=== PATIENT | female | born 1935 | race Caucasian/White ===

== ENCOUNTER 2018-11-03 19:00 | Inpatient (IN) | payer MEDICARE ==
[2018-11-03] MEDS ORDERED: Insulin Regular, Human 100 Units/ML 3 ML Vial IV STA (19:50)
[2018-11-03] MEDS ORDERED: Lactated Ringers 1,000 ML IV ONE ×2 (19:53→21:51)
--- NOTE | 2018-11-03 20:33 | EDM.PDOC ---
ED HPI GENERAL MEDICAL PROBLEM - General Chief Complaint: Diabetic Complaint Stated Complaint: HIGH BLOOD SUGAR WEAK Time Seen by Provider: 11/03/18 19:36 Source of Information: Reports: Family (Daughter), RN Notes Reviewed History Limitations: Reports: No Limitations - History of Present Illness INITIAL COMMENTS - FREE TEXT/NARRATIVE: The patient is brought by EMS from [facility], a [facility], with a complaint of hyperglycemia. According to EMS, the patient's blood glucose was found to be >600 at [facility]. No paperwork accompanied the patient, however , the patient's daughter is here in the ED. According to the patient's daughter, the patient is a history of diabetes, on insulin. She believes that her mother's blood glucose is checked twice a day. She does not know what her mother's normal blood glucose range is, however, as far as the patient's daughter is aware, the patient's blood glucoses were within her normal range up until yesterday, but were elevated today. The daughter stated that the patient has not been eating today. She is not aware if [facility] gave additional insulin or not. The patient's daughter is not aware of any infectious symptoms in the patient, such as a cough, fever, or rash. Here in the ED, the patient's Accu-Chek is >400. She is tachycardic, but afebrile, saturating 95% on room air. She is confused, and unable to provide any meaningful history. The patient's PCP is Dr. Cota. - Related Data Allergies Allergy/AdvReac Type Severity Reaction Status Date / Time lisinopril [From Zestril] Allergy Cannot Verified 11/03/18 19:54 Remember Penicillins Allergy Cannot Verified 11/03/18 19:54 Remember simvastatin [From Zocor] Allergy Cannot Verified 11/03/18 19:54 Remember Home Meds: Home Meds Amlodipine. 7.5 mg PO DAILY 12/23/14 [History] Lialda. 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 ED EXAM GENERAL NO PERIP PULSE - Physical Exam Exam: See Below Exam Limited By: No Limitations General Appearance: No Apparent Distress, Thin Eye Exam: Bilateral Eye: EOMI, Normal Inspection Ears: Normal External Exam Nose: Normal Inspection Throat/Mouth: Normal Lips, No Airway Compromise, Other (Dry oral mucosa) Head: Atraumatic, Normocephalic Neck: Normal Inspection, Full Range of Motion Respiratory/Chest: No Respiratory Distress, Lungs Clear, Normal Breath Sounds, No Accessory Muscle Use, Other (The patient did not take deep breaths on command ) Cardiovascular: Normal Peripheral Pulses, No Edema, No Gallop, No JVD, No Murmur , No Rub, Tachycardia (regular) GI/Abdominal: Normal Bowel Sounds, Soft, Non-Tender, No Organomegaly, No Distention, No Abnormal Bruit, No Mass (Female) Exam: Deferred Rectal (Female) Exam: Deferred Extremities: Normal Inspection, Normal Range of Motion, No Pedal Edema, Normal Capillary Refill Neurological: Confused, Other (Moves all 4 extremities spontaneously) Psychiatric: Other (Unable to assess) Skin Exam: Warm, Dry, Intact, Normal Color, No Rash EKG INTERPRETATION EKG Date: 11/03/18 Time: 19:57 Rhythm: Other (Sinus tachycardia) Rate (Beats/Min): 109 [place]: Normal P-Wave: Enlarged (IRENE, +/- LAE) QRS: Normal ST-T: Normal QT: Normal Comparison: NA - No Prior EKG Course - Vital Signs Last Recorded V/S: Last Vital Signs Temp 36.7 C 11/03/18 19:27 Pulse 113 H 11/03/18 19:27 Resp 18 11/03/18 19: BP 143/89 H 11/03/18 19:27 Pulse Ox 95 11/03/18 19:27 - Orders/Labs/Meds Orders: Active Orders 24 hr Category Date Time Status EKG Documentation Completion [RC] STAT Care 11/03/18 19:48 Active POC Glucose [Blood Glucose Check, Bedside] [RC] ONETIME Care 11/03/18 21:14 Active Chest 1V Frontal [CR] Stat Exams 11/03/18 19:48 Taken CULTURE BLOOD [BC] Stat Lab 11/03/18 20:10 Received CULTURE BLOOD [BC] Stat Lab 11/03/18 20:20 Received Insulin Regular, Human [HumuLIN R] 100 unit Med 11/03/18 20:13 Active Sodium Chloride 0.9% [Normal Saline] 99 ml IV ONETIME Blood Culture x2 Reflex Set [OM.PC] Stat Oth 11/03/18 19:48 Ordered Medication Orders Insulin Human Regular 100 unit (/ Sodium Chloride) 100 mls @ 5.05 mls/hr IV ONETIME ONE; Protocol Stop: 11/04/18 16:01 Last Admin: 11/03/18 20:43 Dose: 0.1 units/kg/hr, 5.05 mls/hr Lactated Ringer's (Ringers, Lactated) 1,000 mls @ 999 mls/hr IV .BOLUS ONE Stop: 11/03/18 22:51 Last Admin: 11/03/18 21:58 Dose: 999 mls/hr Labs: Laboratory Tests 11/03/18 11/03/18 11/03/18 Range/Units 19:20 19:20 19:20 WBC 13.10 H (3.98-10.04) K/mm3 RBC 5.06 (3.98-5.22) M/mm3 Hgb 15.6 (11.2-15.7) gm/L Hct 48.8 H (34.1-44.9) % MCV 96.4 H (79.4-94.8) fl MCH 30.8 (25.6-32.2) pg MCHC 32.0 L (32.2-35.5) g/dl RDW Std Deviation 47.2 H (36.4-46.3) fL Plt Count 345 (182-369) K/mm3 MPV 11.3 (9.4-12.3) fl Neutrophils % (Manual) 80 H (40-60) % Band Neutrophils % 0 (0-10) % Lymphocytes % (Manual) 19 L (20-40) % Atypical Lymphs % 0 % Monocytes % (Manual) 1 L (2-10) % Eosinophils % (Manual) 0 L (0.7-5.8) % Basophils % (Manual) 0 L (0.1-1.2) Platelet Estimate Adequate Plt Morphology Comment Normal RBC Morph Comment Normal Puncture Site ABG pH (7.35-7.45) ABG pCO2 (35.0-45.0) mmHg ABG pO2 (80.0-100.0) mmHg ABG HCO3 (22.0-26.0) meq/L ABG O2 Saturation (96.0-97.0) % ABG Base Excess (-2-2.0) A-a Gradient mmHg O2 Delivery Device FiO2 (21.00-100.00) % Sodium 147 H (136-145) mEq/L Potassium 4.1 (3.5-5.1) mEq/L Chloride 109 H (98-107) mEq/L Carbon Dioxide 24 (21-32) mEq/L Anion Gap 18.1 H (5-15) BUN 47 H (7-18) mg/dL Creatinine 1.6 H (0.55-1.02) mg/dL Est Cr Clr Drug Dosing 21.81 mL/min Estimated GFR (MDRD) 31 (>60) mL/min BUN/Creatinine Ratio 29.4 H (14-18) Glucose 749 H* TNP (83-115) mg/dL Lactic Acid (0.4-2.0) mmol/L Calcium 10.4 H (8.5-10.1) mg/dL Magnesium 2.9 H (1.8-2.4) mg/dl Total Bilirubin 0.3 (0.2-1.0) mg/dL AST 140 H (15-37) U/L ALT 48 (14-59) U/L Alkaline Phosphatase 92 (46-116) U/L Troponin I 0.062 H* (0.00-0.056) ng/mL Total Protein 8.4 H (6.4-8.2) g/dl Albumin 3.7 (3.4-5.0) g/dl Globulin 4.7 gm/dL Albumin/Globulin Ratio 0.8 L (1-2) Urine Color (Yellow) Urine Appearance (Clear) Urine pH (5.0-8.0) Ur Specific [place] (1.005-1.030) Urine Protein (Negative) Urine Glucose (UA) (Negative) Urine Ketones (Negative) Urine Occult Blood (Negative) Urine Nitrite (Negative) Urine Bilirubin (Negative) Urine Urobilinogen (0.2-1.0) Ur Leukocyte Esterase (Negative) Urine RBC (0-5) /hpf Urine WBC (0-5) /hpf Ur Epithelial Cells (0-5) /hpf Urine Bacteria (FEW) /hpf Urine Mucus (FEW) /hpf Ketones (0.0-0.3) mM 11/03/18 11/03/18 11/03/18 Range/Units 19:20 20:03 20:20 WBC (3.98-10.04) K/mm3 RBC (3.98-5.22) M/mm3 Hgb (11.2-15.7) gm/L Hct (34.1-44.9) % MCV (79.4-94.8) fl MCH (25.6-32.2) pg MCHC (32.2-35.5) g/dl RDW Std Deviation (36.4-46.3) fL Plt Count (182-369) K/mm3 MPV (9.4-12.3) fl Neutrophils % (Manual) (40-60) % Band Neutrophils % (0-10) % Lymphocytes % (Manual) (20-40) % Atypical Lymphs % % Monocytes % (Manual) (2-10) % Eosinophils % (Manual) (0.7-5.8) % Basophils % (Manual) (0.1-1.2) Platelet Estimate Plt Morphology Comment RBC Morph Comment Puncture Site Lt radial ABG pH 7.34 L (7.35-7.45) ABG pCO2 39.9 (35.0-45.0) mmHg ABG pO2 66.0 L (80.0-100.0) mmHg ABG HCO3 20.9 L (22.0-26.0) meq/L ABG O2 Saturation 90.5 L (96.0-97.0) % ABG Base Excess -4.1 L (-2-2.0) A-a Gradient 18 mmHg O2 Delivery Device Room air FiO2 21.00 (21.00-100.00) % Sodium (136-145) mEq/L Potassium (3.5-5.1) mEq/L Chloride (98-107) mEq/L Carbon Dioxide (21-32) mEq/L Anion Gap (5-15) BUN (7-18) mg/dL Creatinine (0.55-1.02) mg/dL Est Cr Clr Drug Dosing mL/min Estimated GFR (MDRD) (>60) mL/min BUN/Creatinine Ratio (14-18) Glucose (83-115) mg/dL Lactic Acid 4.8 H (0.4-2.0) mmol/L Calcium (8.5-10.1) mg/dL Magnesium (1.8-2.4) mg/dl Total Bilirubin (0.2-1.0) mg/dL AST (15-37) U/L ALT (14-59) U/L Alkaline Phosphatase (46-116) U/L Troponin I (0.00-0.056) ng/mL Total Protein (6.4-8.2) g/dl Albumin (3.4-5.0) g/dl Globulin gm/dL Albumin/Globulin Ratio (1-2) Urine Color (Yellow) Urine Appearance (Clear) Urine pH (5.0-8.0) Ur Specific [place] (1.005-1.030) Urine Protein (Negative) Urine Glucose (UA) (Negative) Urine Ketones (Negative) Urine Occult Blood (Negative) Urine Nitrite (Negative) Urine Bilirubin (Negative) Urine Urobilinogen (0.2-1.0) Ur Leukocyte Esterase (Negative) Urine RBC (0-5) /hpf Urine WBC (0-5) /hpf Ur Epithelial Cells (0-5) /hpf Urine Bacteria (FEW) /hpf Urine Mucus (FEW) /hpf Ketones 0.35 (0.0-0.3) mM 11/03/18 11/03/18 Range/Units 20:30 21:21 WBC (3.98-10.04) K/mm3 RBC (3.98-5.22) M/mm3 Hgb (11.2-15.7) gm/L Hct (34.1-44.9) % MCV (79.4-94.8) fl MCH (25.6-32.2) pg MCHC (32.2-35.5) g/dl RDW Std Deviation (36.4-46.3) fL Plt Count (182-369) K/mm3 MPV (9.4-12.3) fl Neutrophils % (Manual) (40-60) % Band Neutrophils % (0-10) % Lymphocytes % (Manual) (20-40) % Atypical Lymphs % % Monocytes % (Manual) (2-10) % Eosinophils % (Manual) (0.7-5.8) % Basophils % (Manual) (0.1-1.2) Platelet Estimate Plt Morphology Comment RBC Morph Comment Puncture Site ABG pH (7.35-7.45) ABG pCO2 (35.0-45.0) mmHg ABG pO2 (80.0-100.0) mmHg ABG HCO3 (22.0-26.0) meq/L ABG O2 Saturation (96.0-97.0) % ABG Base Excess (-2-2.0) A-a Gradient mmHg O2 Delivery Device FiO2 (21.00-100.00) % Sodium (136-145) mEq/L Potassium (3.5-5.1) mEq/L Chloride (98-107) mEq/L Carbon Dioxide (21-32) mEq/L Anion Gap (5-15) BUN (7-18) mg/dL Creatinine (0.55-1.02) mg/dL Est Cr Clr Drug Dosing mL/min Estimated GFR (MDRD) (>60) mL/min BUN/Creatinine Ratio (14-18) Glucose 467 H (83-115) mg/dL Lactic Acid (0.4-2.0) mmol/L Calcium (8.5-10.1) mg/dL Magnesium (1.8-2.4) mg/dl Total Bilirubin (0.2-1.0) mg/dL AST (15-37) U/L ALT (14-59) U/L Alkaline Phosphatase (46-116) U/L Troponin I (0.00-0.056) ng/mL Total Protein (6.4-8.2) g/dl Albumin (3.4-5.0) g/dl Globulin gm/dL Albumin/Globulin Ratio (1-2) Urine Color Light yellow (Yellow) Urine Appearance Clear (Clear) Urine pH 6.0 (5.0-8.0) Ur Specific [place] 1.015 (1.005-1.030) Urine Protein 1+ H (Negative) Urine Glucose (UA) 2+ H (Negative) Urine Ketones Negative (Negative) Urine Occult Blood 3+ H (Negative) Urine Nitrite Negative (Negative) Urine Bilirubin Negative (Negative) Urine Urobilinogen 0.2 (0.2-1.0) Ur Leukocyte Esterase Negative (Negative) Urine RBC 0-5 (0-5) /hpf Urine WBC 0-5 (0-5) /hpf Ur Epithelial Cells 0-5 (0-5) /hpf Urine Bacteria Not seen (FEW) /hpf Urine Mucus Not seen (FEW) /hpf Ketones (0.0-0.3) mM Meds: Medications Generic Name Dose Route Start Last Admin Trade Name Freq PRN Reason Stop Dose Admin Insulin Human Regular 100 unit 100 mls @ 5.05 mls/hr 11/03/18 20:13 11/03/18 20:43 / Sodium Chloride IV 11/04/18 16:01 0.1 units/kg/hr ONETIME ONE 5.05 mls/hr Administration Protocol 0.1 UNITS/KG/HR Lactated Ringer's 1,000 mls @ 999 mls/hr 11/03/18 21:51 11/03/18 21:58 Ringers, Lactated IV 11/03/18 22:51 999 mls/hr .BOLUS ONE Administration Discontinued Medications Generic Name Dose Route Start Last Admin Trade Name Freedie PRN Reason Stop Dose Admin Insulin Human Regular 100 unit 100 mls @ 0.5 mls/hr 11/03/18 20:00 / Sodium Chloride IV TITRATE SIVA Protocol 0.1 UNITS/KG/HR Lactated Ringer's 1,000 mls @ 999 mls/hr 11/03/18 19:53 11/03/18 20:20 Ringers, Lactated IV 11/03/18 20:53 999 mls/hr .BOLUS ONE Administration Insulin Human Regular 5 unit 11/03/18 19:50 11/03/18 20:19 Humulin R IV 11/03/18 19:51 5 units ONETIME STA Administration - Re-Assessments/Exams Free Text/Narrative Re-Assessment/Exam: 11/03/18 20:28 The patient's ABG demonstrates a relatively mild, but acute metabolic acidosis. 11/03/18 20:33 The patient's sodium has returned modestly elevated at 147, however, her blood glucose has returned substantially elevated at 749. The patient's sodium corrects to 155. Her BUN/Cr is elevated at 47/1.6; we do not have prior labs for comparison. Her magnesium level is elevated at 2.9. The patient's troponin has returned slightly elevated at 0.062, however, the purpose of checking the troponin was only to see if a recent CA was the trigger for her hyperglycemia, not for the intention of treating coronary disease, given the patient's underlying dementia. This slight elevation of troponin is most likely due to her renal dysfunction, not a recent myocardial injury. 11/03/18 20:39 The patient's WBC count has returned mildly elevated at 13.10, but with 0% bandemia. The patient's ketones have returned slightly elevated at 0.35, indicating ketosis. 11/03/18 21:16 The patient's lactic acid level has returned modestly elevated at 4.8. Her influenza swab returned negative. Portable chest radiograph reviewed. The cardiac silhouette is within normal limits. No pulmonary vascular congestion. No pleural effusions seen on this AP view. There may be an infiltrate versus atelectasis at the left base. No pneumothorax. Formal read per the Radiologist pending. 11/03/18 21:[address] Lew at 21:23. He accepted the patient for admission to the ICU. Departure - Departure Time of Disposition: 21:26 Disposition: Admitted As Inpatient 68 Condition: Fair Clinical Impression: Hyperglycemia due to type 2 diabetes mellitus, Hyperglycemic hyperosmolar nonketotic coma, Severe dehydration, Renal insufficiency - Discharge Information *PRESCRIPTION DRUG MONITORING PROGRAM REVIEWED*: Not Applicable *COPY OF PRESCRIPTION DRUG MONITORING REPORT IN PATIENT SOHAM: Not Applicable - My Orders Last 24 Hours: My Active Orders 11/03/18 19:48 EKG Documentation Completion [RC] STAT Chest 1V Frontal [CR] Stat Blood Culture x2 Reflex Set [OM.PC] Stat 11/03/18 20:10 CULTURE BLOOD [BC] Stat 11/03/18 20:13 Insulin Regular, Human [HumuLIN R] 100 unit Sodium Chloride 0.9% [Normal Saline] 99 ml IV ONETIME 11/03/18 20:20 CULTURE BLOOD [BC] Stat 11/03/18 21:14 POC Glucose [Blood Glucose Check, Bedside] [RC] ONETIME - Assessment/Plan Last 24 Hours: My Active Orders 11/03/18 19:48 EKG Documentation Completion [RC] STAT Chest 1V Frontal [CR] Stat Blood Culture x2 Reflex Set [OM.PC] Stat 11/03/18 20:10 CULTURE BLOOD [BC] Stat 11/03/18 20:13 Insulin Regular, Human [HumuLIN R] 100 unit Sodium Chloride 0.9% [Normal Saline] 99 ml IV ONETIME 11/03/18 20:20 CULTURE BLOOD [BC] Stat 11/03/18 21:14 POC Glucose [Blood Glucose Check, Bedside] [RC] ONETIME
[2018-11-03] MEDS ORDERED: hydrALAZINE 20 MG/ML SDV IVPUSH PRN (22:08)
[2018-11-03] MEDS ORDERED: Metoprolol Tartrate 5 MG/5 ML SDV IVPUSH PRN (22:08)
[2018-11-03] MEDS ORDERED: HYDROmorphone 1 MG/ML Syringe IVPUSH PRN (22:10)
[2018-11-03] MEDS ORDERED: Bisacodyl 5 MG Tab PO PRN (22:10)
[2018-11-03] MEDS ORDERED: Acetaminophen 325 MG Tab PO PRN (22:10)
[2018-11-03] MEDS ORDERED: LORazepam 2 MG/ML SDV IV PRN (22:10)
[2018-11-03] MEDS ORDERED: Albuterol/Ipratropium 3.0-0.5 MG/3 ML Neb Soln NEB PRN (22:10)
[2018-11-03] MEDS ORDERED: Polyethylene Glycol 3350 Powder 17 GM Packet PO PRN (22:10)
[2018-11-03] MEDS ORDERED: Ondansetron 4 MG/2 ML SDV IV PRN (22:10)
[2018-11-03] MEDS ORDERED: Promethazine 6.25 MG in Sodium Chloride 0.9% 50 ML IV PRN (22:10)
[2018-11-03] MEDS ORDERED: Acetaminophen/HYDROcodone 325-5 MG Tab PO PRN (22:10)
[2018-11-03] MEDS ORDERED: Docusate Sodium 100 MG Cap PO PRN (22:10)
[2018-11-03] MEDS ORDERED: Haloperidol Lactate 5 MG/ML SDV IM PRN (22:47)
[2018-11-03] MEDS ORDERED: Rivaroxaban 10 MG Tab PO ONE (22:59)
[2018-11-03] MEDS ORDERED: 50% Dextrose in Water 50 ML Syringe IVPUSH PRN (23:12)
[2018-11-04] MEDS ORDERED: Potassium Chloride 20 MEQ Tab.ER PO SCH
[2018-11-04] MEDS: Potassium Chloride 10 MEQ in Premix Bag 1 BAG IV SCH ×2 (00:07→01:15)
[2018-11-04] MEDS: Lactated Ringers 1,000 ML IV SCH ×2 (01:15→09:15)
[2018-11-04] MEDS ORDERED: glipiZIDE 5 MG Tab.ER PO SCH ×2 (07:00→12:00)
[2018-11-04 07:06] LABS: VITAMIN D,25-HYDROXY 31.6 ng/ml (30.0-100.0)
[2018-11-04] MEDS ORDERED: Insulin Lispro 100 Unit/ML 3 ML KwikPen SUBCUT SCH (08:04)
--- NOTE | 2018-11-04 08:21 | CR ---
Chest: Portable view of the chest was obtained. Comparison: Prior chest x-ray of 12/28/09. Heart size and mediastinum are within normal limits. Questionable increased density within the right upper lung is noted as an interval change from previous study. Slight atelectasis is noted within the left lung base. Lungs otherwise are clear. Bony structures are osteopenic. Impression: 1. Questionable increased density within the right upper lung as an interval change from prior study. Minimal area of pneumonia is difficult to exclude. 2. Other incidental findings. Diagnostic code #3
[2018-11-04] MEDS: Insulin Lispro 100 Unit/ML 3 ML KwikPen SUBCUT SCH ×4 (08:54→21:15)
[2018-11-04] MEDS: Aspirin 81 MG Tab.EC PO SCH (08:57)
[2018-11-04] MEDS: Multivitamins with Minerals/Folic Acid/Lutein/Zeaxanth Tab PO SCH (08:57)
[2018-11-04] MEDS: amLODIPine 2.5 MG Tab PO SCH (08:57)
[2018-11-04] MEDS ORDERED: Insulin Glarg,Human.Rec.Analog 100 UNIT/ML ML SUBCUT SCH (09:00)
[2018-11-04] MEDS ORDERED: Rivaroxaban 10 MG Tab PO SCH (09:00)
[2018-11-04] MEDS ORDERED: Non-Formulary Medication 1 Each (Sitagliptin 100 MG) PO SCH (09:00)
--- NOTE | 2018-11-04 10:10 | CT ---
Head CT Technique: Multiple axial sections through the brain were obtained. Intravenous contrast was not utilized. Comparison: No prior intracranial imaging. Findings: Ventricles are moderately to markedly prominent. Sulci over the convexities are mildly prominent. Diminished density is noted within the periventricular and subcortical white matter compatible with small vessel ischemic demyelination change. No other abnormal parenchymal densities are seen. Atherosclerotic calcification is noted within the carotid siphon. Bone window settings show the visualized sinuses to appear clear. No acute calvarial abnormality is identified. Impression: 1. Enlarged ventricular system slightly out of proportion to the cortical atrophy. Difficult to completely exclude normal partial hydrocephalus although findings could represent diffuse atrophy with greater central component. Please correlate if patient has any clinical symptoms of NPH. 2. Other senescent change as noted above. 3. Nothing acute is otherwise seen. Diagnostic code #3
[2018-11-04] MEDS ORDERED: Alogliptin 12.5 MG TABLET PO SCH (10:30)
[2018-11-04] MEDS: cefTRIAXone 1 GM in Sodium Chloride 0.9% 100 ML IV SCH (11:58)
[2018-11-04] MEDS: Clindamycin Phosphate 600 MG in Sodium Chloride 0.9% 100 ML IV SCH ×2 (12:37→20:03)
--- NOTE | 2018-11-04 12:44 | PCM.HP ---
H&P History of Present Illness - General Date of Service: 11/04/18 Admit Problem/Dx: Admission Diagnosis/Problem Admission Diagnosis/Problem Hyperglycemia Source of Information: Patient, Family, Old Records, Provider, RN, RN Notes Reviewed History Limitations: Reports: Altered Mental Status - History of Present Illness Initial Comments - Free Text/Narative: Alexa Cazares is an 83 yo female who presented to our ED yesterday evening from [facility] with hyperglycemia and weakness. EMS reports that [facility] on the patient's sugars to be over 600. Patient' s daughter is with patient and reports she has a history of diabetes and is on insulin. To the best of her knowledge she believes her mother's blood sugars are checked twice a day and she is unsure what the normal ranges. She reports from what she is aware of patient's blood sugars were normal up until yesterday but were elevated today. She reports the patient has not been eating and is unsure if she was given her normal dose of insulin or not. Daughter is not aware of any infectious symptoms such as cough, fever, or rash. In the ED Accu- Chek is greater than 400. She is tachycardic, afebrile, and oxygen saturations are 95% on room air. She is confused and unable to provide any meaningful history. In the ED temperature was 36.7C. Pulse 113. Respirations 18. Blood pressure 143/89. Pulse ox 95% on room air. An: WBC is 13.10. Hemoglobin 15.6. Hematocrit 48.8. She is slightly macrocytic. Platelets are good at 345,000. Neutrophils are elevated at 880%. There is no bandemia. Sodium is 147. Potassium 4.1. Chloride 109. Carbon dioxide 24. Anion gap 18.1. BUN is 47. Creatinine 1.6. EGFR 31. Glucose is 749. Calcium is 104. Magnesium 2.9. AST is 140, ALT 48, alkaline phosphatase 92. Troponin 0.062. Protein is 8.4. Albumin 3.7. ABG is obtained and the left radial showing a pH of 7.34. PCO2 39.9. PO2 66.0. HCO3 is 20.9. O2 saturation is 90.5. Base excess is -4.1. A- a gradient is 18. This is while on room air. Lactic acid was obtained and found to be 4.8. Ketones are 0.35. UA is negative however one plus protein, 2 + glucose, 3+ occult blood is noted. She is started on insulin drip and given multiple boluses of LR. Influenza swab was negative and blood cultures were obtained. Chest x-ray is obtained and reviewed by Dr. Malave as "one questionable increased density within the right upper lung as an interval change from prior study. Minimal area of pneumonia is difficult to exclude. 2. Other incidental findings." Twelve-lead EKG is obtained which shows a sinus tachycardia at a rate of 109 BPM with enlarged P-waves. She carries a history of: Hypertension, colitis, dementia, type II DM. She was never a smoker. She is a DNR/DNI. Her PCP is Dr. Cota. - Related Data Allergies/Adverse Reactions: Allergies Allergy/AdvReac Type Severity Reaction Status Date / Time lisinopril [From Zestril] Allergy Cannot Verified 11/04/18 00:11 Remember Penicillins Allergy Cannot Verified 11/04/18 00:11 Remember simvastatin [From Zocor] Allergy Cannot Verified 11/04/18 00:11 Remember Home Medications: Home Meds Amlodipine. 7.5 mg PO DAILY 12/23/14 [History] glipiZIDE [Glipizide Xl] 10 mg PO BID 12/23/14 [History] Aspirin 81 mg PO DAILY 11/03/18 [History] Beta-Carotene(A) w/C & E/Min [Prosight] 1 tab PO DAILY 11/03/18 [History] Insulin Glarg,Human.Rec.Analog [Lantus] 4 units SUBCUT DAILY 11/03/18 [History] SitaGLIPtin [Januvia] 100 mg PO DAILY 11/03/18 [History] Sodium Phosphate,Grady-Dibasic [Enema Ready To Use] 133 ml RC DAILY PRN 11/04/18 [History] Past Medical History Cardiovascular History: Reports: Hypertension Other Cardiovascular History: hyperlipidemia Gastrointestinal History: Reports: Other (See Below) (Colitis) Other Gastrointestinal History: colitis, rectocele Neurological History: Reports: Other (See Below) (Dementia) Other Neuro History: dementia Psychiatric History: Reports: Dementia Endocrine/Metabolic History: Reports: Diabetes, Type II - Past Surgical History 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) Female Surgical History: Reports: Hysterectomy, Salpingo-Oophorectomy Social & Family History - Family History Family Medical History: Unobtainable - Tobacco Use Smoking Status *Q: Never Smoker Second Hand Smoke Exposure: No - Caffeine Use Caffeine Use: Reports: Coffee - Recreational Drug Use Recreational Drug Use: No - Living Situation & Occupation Living situation: Reports: , Extended Care Facility (Country home) Occupation: Retired H&P Review of Systems - Review of Systems: Review Of Systems: Unable To Obtain Free Text/Narrative: Attempted ROS however patient is very confused and does not respond to questions appropriately. Family present reports the current level of confusion is her baseline and she was much worse when she came to the ED. Exam - Exam Exam: See Below - Vital Signs Vital Signs: Last Vital Signs Temp 97.1 F 11/04/18 08:00 Pulse 92 11/04/18 04:00 Resp 19 11/04/18 08:00 BP 147/110 H 11/04/18 08:57 Pulse Ox 98 11/04/18 08:00 Weight: 116 lb 8 oz - Exam Quality Assessment: DVT Prophylaxis General: Alert. No: Oriented, Cooperative (Very confused but allows exam. Unable to follow commands. ), Mild Distress, Sedated, Lethargic, Obtunded HEENT: Conjunctiva Clear, EACs Clear, EOMI, Hearing Intact, Nares Patent, Posterior Pharynx Clear, PERRLA. No: Mucosa Moist & [place] (dry) Neck: Supple, Trachea Midline Lungs: Clear to Auscultation, Normal Respiratory Effort Cardiovascular: Regular Rate, Regular Rhythm GI/Abdominal Exam: Normal Bowel Sounds, Soft, Non-Tender, No Distention, No Abnormal Bruit (Female) Exam: Deferred Rectal (Female) Exam: Deferred Extremities: Normal Inspection, Normal Range of Motion, Non-Tender, No Pedal Edema, Normal Capillary Refill Peripheral Pulses: 2+: Radial (L), Radial (R), Dorsalis Pedis (L), Dorsalis Pedis (R) Skin: Warm, Dry, Intact Neurological: Other (Unable to evaluate due to confusion. Moving all extremities and does make eye contact. Responds to questions by lauging or using inapropriate words.) Neuro Extensive - Mental Status: Alert. No: Oriented x3 - Patient Data Lab Results Last 24 hrs: Laboratory Results - last 24 hr 11/03/18 11/03/18 11/03/18 Range/Units 19:20 19:20 19:20 WBC 13.10 H (3.98-10.04) K/mm3 RBC 5.06 (3.98-5.22) M/mm3 Hgb 15.6 (11.2-15.7) gm/L Hct 48.8 H (34.1-44.9) % MCV 96.4 H (79.4-94.8) fl MCH 30.8 (25.6-32.2) pg MCHC 32.0 L (32.2-35.5) g/dl RDW Std Deviation 47.2 H (36.4-46.3) fL Plt Count 345 (182-369) K/mm3 MPV 11.3 (9.4-12.3) fl Neut % (Auto) (34.0-71.1) % Lymph % (Auto) (19.3-51.7) % Grady % (Auto) (4.7-12.5) % Eos % (Auto) (0.7-5.8) Baso % (Auto) (0.1-1.2) % Neut # (Auto) (1.56-6.13) K/mm3 Lymph # (Auto) (1.18-3.74) K/mm3 [place]ady # (Auto) (0.24-0.36) K/mm3 Eos # (Auto) (0.04-0.36) K/mm3 Baso # (Auto) (0.01-0.08) K/mm3 Neutrophils % (Manual) 80 H (40-60) % Band Neutrophils % 0 (0-10) % Lymphocytes % (Manual) 19 L (20-40) % Atypical Lymphs % 0 % Monocytes % (Manual) 1 L (2-10) % Eosinophils % (Manual) 0 L (0.7-5.8) % Basophils % (Manual) 0 L (0.1-1.2) Platelet Estimate Adequate Plt Morphology Comment Normal RBC Morph Comment Normal Puncture Site ABG pH (7.35-7.45) ABG pCO2 (35.0-45.0) mmHg ABG pO2 (80.0-100.0) mmHg ABG HCO3 (22.0-26.0) meq/L ABG O2 Saturation (96.0-97.0) % ABG Base Excess (-2-2.0) A-a Gradient mmHg O2 Delivery Device FiO2 (21.00-100.00) % Sodium 147 H (136-145) mEq/L Potassium 4.1 (3.5-5.1) mEq/L Chloride 109 H (98-107) mEq/L Carbon Dioxide 24 (21-32) mEq/L Anion Gap 18.1 H (5-15) BUN 47 H (7-18) mg/dL Creatinine 1.6 H (0.55-1.02) mg/dL Est Cr Clr Drug Dosing 21.81 mL/min Estimated GFR (MDRD) 31 (>60) mL/min BUN/Creatinine Ratio 29.4 H (14-18) Glucose 749 H* TNP (83-115) mg/dL POC Glucose (83-110) mg/dL Hemoglobin A1c (4.50-6.20) % Lactic Acid (0.4-2.0) mmol/L Calcium 10.4 H (8.5-10.1) mg/dL Magnesium 2.9 H (1.8-2.4) mg/dl Total Bilirubin 0.3 (0.2-1.0) mg/dL AST 140 H (15-37) U/L ALT 48 (14-59) U/L Alkaline Phosphatase 92 (46-116) U/L CK-MB (CK-2) (0-3.6) ng/ml Troponin I 0.062 H* (0.00-0.056) ng/mL C-Reactive Protein (<1.0) mg/dL Total Protein 8.4 H (6.4-8.2) g/dl Albumin 3.7 (3.4-5.0) g/dl Globulin 4.7 gm/dL Albumin/Globulin Ratio 0.8 L (1-2) Vitamin D 25-Hydroxy (30.0-100.0) ng/ml Free T4 (0.76-1.46) ng/dL TSH 3rd Generation (0.358-3.74) uIU/mL Urine Color (Yellow) Urine Appearance (Clear) Urine pH (5.0-8.0) Ur Specific [place] (1.005-1.030) Urine Protein (Negative) Urine Glucose (UA) (Negative) Urine Ketones (Negative) Urine Occult Blood (Negative) Urine Nitrite (Negative) Urine Bilirubin (Negative) Urine Urobilinogen (0.2-1.0) Ur Leukocyte Esterase (Negative) Urine RBC (0-5) /hpf Urine WBC (0-5) /hpf Ur Epithelial Cells (0-5) /hpf Urine Bacteria (FEW) /hpf Urine Mucus (FEW) /hpf Ur Random Creatinine (30.0-125.0) mg/dL Ur Random Microalbumin (1.3-20.0) mg/L Microalb/Creat Ratio (0-30) mg/g Ketones (0.0-0.3) mM MRSA (PCR) 11/03/18 11/03/18 11/03/18 Range/Units 19:20 20:03 20:20 WBC (3.98-10.04) K/mm3 RBC (3.98-5.22) M/mm3 Hgb (11.2-15.7) gm/L Hct (34.1-44.9) % MCV (79.4-94.8) fl MCH (25.6-32.2) pg MCHC (32.2-35.5) g/dl RDW Std Deviation (36.4-46.3) fL Plt Count (182-369) K/mm3 MPV (9.4-12.3) fl Neut % (Auto) (34.0-71.1) % Lymph % (Auto) (19.3-51.7) % Grady % (Auto) (4.7-12.5) % Eos % (Auto) (0.7-5.8) Baso % (Auto) (0.1-1.2) % Neut # (Auto) (1.56-6.13) K/mm3 Lymph # (Auto) (1.18-3.74) K/mm3 Grady # (Auto) (0.24-0.36) K/mm3 Eos # (Auto) (0.04-0.36) K/mm3 Baso # (Auto) (0.01-0.08) K/mm3 Neutrophils % (Manual) (40-60) % Band Neutrophils % (0-10) % Lymphocytes % (Manual) (20-40) % Atypical Lymphs % % Monocytes % (Manual) (2-10) % Eosinophils % (Manual) (0.7-5.8) % Basophils % (Manual) (0.1-1.2) Platelet Estimate Plt Morphology Comment RBC Morph Comment Puncture Site Lt radial ABG pH 7.34 L (7.35-7.45) ABG pCO2 39.9 (35.0-45.0) mmHg ABG pO2 66.0 L (80.0-100.0) mmHg ABG HCO3 20.9 L (22.0-26.0) meq/L ABG O2 Saturation 90.5 L (96.0-97.0) % ABG Base Excess -4.1 L (-2-2.0) A-a Gradient 18 mmHg O2 Delivery Device Room air FiO2 21.00 (21.00-100.00) % Sodium (136-145) mEq/L Potassium (3.5-5.1) mEq/L Chloride (98-107) mEq/L Carbon Dioxide (21-32) mEq/L Anion Gap (5-15) BUN (7-18) mg/dL Creatinine (0.55-1.02) mg/dL Est Cr Clr Drug Dosing mL/min Estimated GFR (MDRD) (>60) mL/min BUN/Creatinine Ratio (14-18) Glucose (83-115) mg/dL POC Glucose (83-110) mg/dL Hemoglobin A1c (4.50-6.20) % Lactic Acid 4.8 H (0.4-2.0) mmol/L Calcium (8.5-10.1) mg/dL Magnesium (1.8-2.4) mg/dl Total Bilirubin (0.2-1.0) mg/dL AST (15-37) U/L ALT (14-59) U/L Alkaline Phosphatase (46-116) U/L CK-MB (CK-2) (0-3.6) ng/ml Troponin I (0.00-0.056) ng/mL C-Reactive Protein (<1.0) mg/dL Total Protein (6.4-8.2) g/dl Albumin (3.4-5.0) g/dl Globulin gm/dL Albumin/Globulin Ratio (1-2) Vitamin D 25-Hydroxy (30.0-100.0) ng/ml Free T4 (0.76-1.46) ng/dL TSH 3rd Generation (0.358-3.74) uIU/mL Urine Color (Yellow) Urine Appearance (Clear) Urine pH (5.0-8.0) Ur Specific [place] (1.005-1.030) Urine Protein (Negative) Urine Glucose (UA) (Negative) Urine Ketones (Negative) Urine Occult Blood (Negative) Urine Nitrite (Negative) Urine Bilirubin (Negative) Urine Urobilinogen (0.2-1.0) Ur Leukocyte Esterase (Negative) Urine RBC (0-5) /hpf Urine WBC (0-5) /hpf Ur Epithelial Cells (0-5) /hpf Urine Bacteria (FEW) /hpf Urine Mucus (FEW) /hpf Ur Random Creatinine (30.0-125.0) mg/dL Ur Random Microalbumin (1.3-20.0) mg/L Microalb/Creat Ratio (0-30) mg/g Ketones 0.35 (0.0-0.3) mM MRSA (PCR) 11/03/18 11/03/18 11/03/18 Range/Units 20:30 20:30 21:21 WBC (3.98-10.04) K/mm3 RBC (3.98-5.22) M/mm3 Hgb (11.2-15.7) gm/L Hct (34.1-44.9) % MCV (79.4-94.8) fl MCH (25.6-32.2) pg MCHC (32.2-35.5) g/dl RDW Std Deviation (36.4-46.3) fL Plt Count (182-369) K/mm3 MPV (9.4-12.3) fl Neut % (Auto) (34.0-71.1) % Lymph % (Auto) (19.3-51.7) % [place] % (Auto) (4.7-12.5) % Eos % (Auto) (0.7-5.8) Baso % (Auto) (0.1-1.2) % Neut # (Auto) (1.56-6.13) K/mm3 Lymph # (Auto) (1.18-3.74) K/mm3 [place] # (Auto) (0.24-0.36) K/mm3 Eos # (Auto) (0.04-0.36) K/mm3 Baso # (Auto) (0.01-0.08) K/mm3 Neutrophils % (Manual) (40-60) % Band Neutrophils % (0-10) % Lymphocytes % (Manual) (20-40) % Atypical Lymphs % % Monocytes % (Manual) (2-10) % Eosinophils % (Manual) (0.7-5.8) % Basophils % (Manual) (0.1-1.2) Platelet Estimate Plt Morphology Comment RBC Morph Comment Puncture Site ABG pH (7.35-7.45) ABG pCO2 (35.0-45.0) mmHg ABG pO2 (80.0-100.0) mmHg ABG HCO3 (22.0-26.0) meq/L ABG O2 Saturation (96.0-97.0) % ABG Base Excess (-2-2.0) A-a Gradient mmHg O2 Delivery Device FiO2 (21.00-100.00) % Sodium (136-145) mEq/L Potassium (3.5-5.1) mEq/L Chloride (98-107) mEq/L Carbon Dioxide (21-32) mEq/L Anion Gap (5-15) BUN (7-18) mg/dL Creatinine (0.55-1.02) mg/dL Est Cr Clr Drug Dosing mL/min Estimated GFR (MDRD) (>60) mL/min BUN/Creatinine Ratio (14-18) Glucose 467 H (83-115) mg/dL POC Glucose (83-110) mg/dL Hemoglobin A1c (4.50-6.20) % Lactic Acid (0.4-2.0) mmol/L Calcium (8.5-10.1) mg/dL Magnesium (1.8-2.4) mg/dl Total Bilirubin (0.2-1.0) mg/dL AST (15-37) U/L ALT (14-59) U/L Alkaline Phosphatase (46-116) U/L CK-MB (CK-2) (0-3.6) ng/ml Troponin I (0.00-0.056) ng/mL C-Reactive Protein (<1.0) mg/dL Total Protein (6.4-8.2) g/dl Albumin (3.4-5.0) g/dl Globulin gm/dL Albumin/Globulin Ratio (1-2) Vitamin D 25-Hydroxy (30.0-100.0) ng/ml Free T4 (0.76-1.46) ng/dL TSH 3rd Generation (0.358-3.74) uIU/mL Urine Color Light yellow (Yellow) Urine Appearance Clear (Clear) Urine pH 6.0 (5.0-8.0) Ur Specific [place] 1.015 (1.005-1.030) Urine Protein 1+ H (Negative) Urine Glucose (UA) 2+ H (Negative) Urine Ketones Negative (Negative) Urine Occult Blood 3+ H (Negative) Urine Nitrite Negative (Negative) Urine Bilirubin Negative (Negative) Urine Urobilinogen 0.2 (0.2-1.0) Ur Leukocyte Esterase Negative (Negative) Urine RBC 0-5 (0-5) /hpf Urine WBC 0-5 (0-5) /hpf Ur Epithelial Cells 0-5 (0-5) /hpf Urine Bacteria Not seen (FEW) /hpf Urine Mucus Not seen (FEW) /hpf Ur Random Creatinine 25.8 L (30.0-125.0) mg/dL Ur Random Microalbumin 84.8 H (1.3-20.0) mg/L Microalb/Creat Ratio 328.6 H (0-30) mg/g Ketones (0.0-0.3) mM MRSA (PCR) 11/03/18 11/03/18 11/03/18 Range/Units 22:18 22:36 22:36 WBC (3.98-10.04) K/mm3 RBC (3.98-5.22) M/mm3 Hgb (11.2-15.7) gm/L Hct (34.1-44.9) % MCV (79.4-94.8) fl MCH (25.6-32.2) pg MCHC (32.2-35.5) g/dl RDW Std Deviation (36.4-46.3) fL Plt Count (182-369) K/mm3 MPV (9.4-12.3) fl Neut % (Auto) (34.0-71.1) % Lymph % (Auto) (19.3-51.7) % [place] % (Auto) (4.7-12.5) % Eos % (Auto) (0.7-5.8) Baso % (Auto) (0.1-1.2) % Neut # (Auto) (1.56-6.13) K/mm3 Lymph # (Auto) (1.18-3.74) K/mm3 [place] # (Auto) (0.24-0.36) K/mm3 Eos # (Auto) (0.04-0.36) K/mm3 Baso # (Auto) (0.01-0.08) K/mm3 Neutrophils % (Manual) (40-60) % Band Neutrophils % (0-10) % Lymphocytes % (Manual) (20-40) % Atypical Lymphs % % Monocytes % (Manual) (2-10) % Eosinophils % (Manual) (0.7-5.8) % Basophils % (Manual) (0.1-1.2) Platelet Estimate Plt Morphology Comment RBC Morph Comment Puncture Site ABG pH (7.35-7.45) ABG pCO2 (35.0-45.0) mmHg ABG pO2 (80.0-100.0) mmHg ABG HCO3 (22.0-26.0) meq/L ABG O2 Saturation (96.0-97.0) % ABG Base Excess (-2-2.0) A-a Gradient mmHg O2 Delivery Device FiO2 (21.00-100.00) % Sodium 155 H (136-145) mEq/L Potassium 3.3 L (3.5-5.1) mEq/L Chloride 118 H (98-107) mEq/L Carbon Dioxide 24 (21-32) mEq/L Anion Gap 16.3 H (5-15) BUN 41 H (7-18) mg/dL Creatinine 1.2 H (0.55-1.02) mg/dL Est Cr Clr Drug Dosing 29.08 mL/min Estimated GFR (MDRD) 43 (>60) mL/min BUN/Creatinine Ratio 34.2 H (14-18) Glucose 314 H (83-115) mg/dL POC Glucose 396 H (83-110) mg/dL Hemoglobin A1c (4.50-6.20) % Lactic Acid 5.8 H (0.4-2.0) mmol/L Calcium 9.7 (8.5-10.1) mg/dL Magnesium (1.8-2.4) mg/dl Total Bilirubin (0.2-1.0) mg/dL AST (15-37) U/L ALT (14-59) U/L Alkaline Phosphatase (46-116) U/L CK-MB (CK-2) (0-3.6) ng/ml Troponin I (0.00-0.056) ng/mL C-Reactive Protein (<1.0) mg/dL Total Protein (6.4-8.2) g/dl Albumin (3.4-5.0) g/dl Globulin gm/dL Albumin/Globulin Ratio (1-2) Vitamin D 25-Hydroxy (30.0-100.0) ng/ml Free T4 (0.76-1.46) ng/dL TSH 3rd Generation (0.358-3.74) uIU/mL Urine Color (Yellow) Urine Appearance (Clear) Urine pH (5.0-8.0) Ur Specific [place] (1.005-1.030) Urine Protein (Negative) Urine Glucose (UA) (Negative) Urine Ketones (Negative) Urine Occult Blood (Negative) Urine Nitrite (Negative) Urine Bilirubin (Negative) Urine Urobilinogen (0.2-1.0) Ur Leukocyte Esterase (Negative) Urine RBC (0-5) /hpf Urine WBC (0-5) /hpf Ur Epithelial Cells (0-5) /hpf Urine Bacteria (FEW) /hpf Urine Mucus (FEW) /hpf Ur Random Creatinine (30.0-125.0) mg/dL Ur Random Microalbumin (1.3-20.0) mg/L Microalb/Creat Ratio (0-30) mg/g Ketones (0.0-0.3) mM MRSA (PCR) 11/03/18 11/03/18 11/03/18 Range/Units 22:36 22:36 23:09 WBC (3.98-10.04) K/mm3 RBC (3.98-5.22) M/mm3 Hgb (11.2-15.7) gm/L Hct (34.1-44.9) % MCV (79.4-94.8) fl MCH (25.6-32.2) pg MCHC (32.2-35.5) g/dl RDW Std Deviation (36.4-46.3) fL Plt Count (182-369) K/mm3 MPV (9.4-12.3) fl Neut % (Auto) (34.0-71.1) % Lymph % (Auto) (19.3-51.7) % [place] % (Auto) (4.7-12.5) % Eos % (Auto) (0.7-5.8) Baso % (Auto) (0.1-1.2) % Neut # (Auto) (1.56-6.13) K/mm3 Lymph # (Auto) (1.18-3.74) K/mm3 [place] # (Auto) (0.24-0.36) K/mm3 Eos # (Auto) (0.04-0.36) K/mm3 Baso # (Auto) (0.01-0.08) K/mm3 Neutrophils % (Manual) (40-60) % Band Neutrophils % (0-10) % Lymphocytes % (Manual) (20-40) % Atypical Lymphs % % Monocytes % (Manual) (2-10) % Eosinophils % (Manual) (0.7-5.8) % Basophils % (Manual) (0.1-1.2) Platelet Estimate Plt Morphology Comment RBC Morph Comment Puncture Site ABG pH (7.35-7.45) ABG pCO2 (35.0-45.0) mmHg ABG pO2 (80.0-100.0) mmHg ABG HCO3 (22.0-26.0) meq/L ABG O2 Saturation (96.0-97.0) % ABG Base Excess (-2-2.0) A-a Gradient mmHg O2 Delivery Device FiO2 (21.00-100.00) % Sodium (136-145) mEq/L Potassium (3.5-5.1) mEq/L Chloride (98-107) mEq/L Carbon Dioxide (21-32) mEq/L Anion Gap (5-15) BUN (7-18) mg/dL Creatinine (0.55-1.02) mg/dL Est Cr Clr Drug Dosing mL/min Estimated GFR (MDRD) (>60) mL/min BUN/Creatinine Ratio (14-18) Glucose (83-115) mg/dL POC Glucose 247 H (83-110) mg/dL Hemoglobin A1c 10.00 H (4.50-6.20) % Lactic Acid (0.4-2.0) mmol/L Calcium (8.5-10.1) mg/dL Magnesium (1.8-2.4) mg/dl Total Bilirubin (0.2-1.0) mg/dL AST (15-37) U/L ALT (14-59) U/L Alkaline Phosphatase (46-116) U/L CK-MB (CK-2) 111.2 H (0-3.6) ng/ml Troponin I 0.103 H* (0.00-0.056) ng/mL C-Reactive Protein (<1.0) mg/dL Total Protein (6.4-8.2) g/dl Albumin (3.4-5.0) g/dl Globulin gm/dL Albumin/Globulin Ratio (1-2) Vitamin D 25-Hydroxy (30.0-100.0) ng/ml Free T4 (0.76-1.46) ng/dL TSH 3rd Generation (0.358-3.74) uIU/mL Urine Color (Yellow) Urine Appearance (Clear) Urine pH (5.0-8.0) Ur Specific [place] (1.005-1.030) Urine Protein (Negative) Urine Glucose (UA) (Negative) Urine Ketones (Negative) Urine Occult Blood (Negative) Urine Nitrite (Negative) Urine Bilirubin (Negative) Urine Urobilinogen (0.2-1.0) Ur Leukocyte Esterase (Negative) Urine RBC (0-5) /hpf Urine WBC (0-5) /hpf Ur Epithelial Cells (0-5) /hpf Urine Bacteria (FEW) /hpf Urine Mucus (FEW) /hpf Ur Random Creatinine (30.0-125.0) mg/dL Ur Random Microalbumin (1.3-20.0) mg/L Microalb/Creat Ratio (0-30) mg/g Ketones (0.0-0.3) mM MRSA (PCR) 11/04/18 11/04/18 11/04/18 Range/Units 00:09 00:15 05:42 WBC (3.98-10.04) K/mm3 RBC (3.98-5.22) M/mm3 Hgb (11.2-15.7) gm/L Hct (34.1-44.9) % MCV (79.4-94.8) fl MCH (25.6-32.2) pg MCHC (32.2-35.5) g/dl RDW Std Deviation (36.4-46.3) fL Plt Count (182-369) K/mm3 MPV (9.4-12.3) fl Neut % (Auto) (34.0-71.1) % Lymph % (Auto) (19.3-51.7) % [place] % (Auto) (4.7-12.5) % Eos % (Auto) (0.7-5.8) Baso % (Auto) (0.1-1.2) % Neut # (Auto) (1.56-6.13) K/mm3 Lymph # (Auto) (1.18-3.74) K/mm3 [place] # (Auto) (0.24-0.36) K/mm3 Eos # (Auto) (0.04-0.36) K/mm3 Baso # (Auto) (0.01-0.08) K/mm3 Neutrophils % (Manual) (40-60) % Band Neutrophils % (0-10) % Lymphocytes % (Manual) (20-40) % Atypical Lymphs % % Monocytes % (Manual) (2-10) % Eosinophils % (Manual) (0.7-5.8) % Basophils % (Manual) (0.1-1.2) Platelet Estimate Plt Morphology Comment RBC Morph Comment Puncture Site ABG pH (7.35-7.45) ABG pCO2 (35.0-45.0) mmHg ABG pO2 (80.0-100.0) mmHg ABG HCO3 (22.0-26.0) meq/L ABG O2 Saturation (96.0-97.0) % ABG Base Excess (-2-2.0) A-a Gradient mmHg O2 Delivery Device FiO2 (21.00-100.00) % Sodium 149 H (136-145) mEq/L Potassium 3.9 (3.5-5.1) mEq/L Chloride 116 H (98-107) mEq/L Carbon Dioxide 25 (21-32) mEq/L Anion Gap 11.9 (5-15) BUN 33 H (7-18) mg/dL Creatinine 0.8 (0.55-1.02) mg/dL Est Cr Clr Drug Dosing 43.62 mL/min Estimated GFR (MDRD) > 60 (>60) mL/min BUN/Creatinine Ratio 41.3 H (14-18) Glucose 330 H (83-115) mg/dL POC Glucose 258 H (83-110) mg/dL Hemoglobin A1c (4.50-6.20) % Lactic Acid (0.4-2.0) mmol/L Calcium 8.8 (8.5-10.1) mg/dL Magnesium 2.1 (1.8-2.4) mg/dl Total Bilirubin (0.2-1.0) mg/dL AST (15-37) U/L ALT (14-59) U/L Alkaline Phosphatase (46-116) U/L CK-MB (CK-2) 114.0 H (0-3.6) ng/ml Troponin I 0.129 H* (0.00-0.056) ng/mL C-Reactive Protein 1.0 (<1.0) mg/dL Total Protein (6.4-8.2) g/dl Albumin (3.4-5.0) g/dl Globulin gm/dL Albumin/Globulin Ratio (1-2) Vitamin D 25-Hydroxy 31.6 (30.0-100.0) ng/ml Free T4 0.89 (0.76-1.46) ng/dL TSH 3rd Generation 0.317 L (0.358-3.74) uIU/mL Urine Color (Yellow) Urine Appearance (Clear) Urine pH (5.0-8.0) Ur Specific [place] (1.005-1.030) Urine Protein (Negative) Urine Glucose (UA) (Negative) Urine Ketones (Negative) Urine Occult Blood (Negative) Urine Nitrite (Negative) Urine Bilirubin (Negative) Urine Urobilinogen (0.2-1.0) Ur Leukocyte Esterase (Negative) Urine RBC (0-5) /hpf Urine WBC (0-5) /hpf Ur Epithelial Cells (0-5) /hpf Urine Bacteria (FEW) /hpf Urine Mucus (FEW) /hpf Ur Random Creatinine (30.0-125.0) mg/dL Ur Random Microalbumin (1.3-20.0) mg/L Microalb/Creat Ratio (0-30) mg/g Ketones (0.0-0.3) mM MRSA (PCR) Negative 11/04/18 11/04/18 11/04/18 Range/Units 05:42 05:42 07:50 WBC 16.36 H (3.98-10.04) K/mm3 RBC 4.28 (3.98-5.22) M/mm3 Hgb 13.3 (11.2-15.7) gm/L Hct 41.4 (34.1-44.9) % MCV 96.7 H (79.4-94.8) fl MCH 31.1 (25.6-32.2) pg MCHC 32.1 L (32.2-35.5) g/dl RDW Std Deviation 46.0 (36.4-46.3) fL Plt Count 258 (182-369) K/mm3 MPV 10.6 (9.4-12.3) fl Neut % (Auto) 72.5 H (34.0-71.1) % Lymph % (Auto) 18.3 L (19.3-51.7) % [place] % (Auto) 6.5 (4.7-12.5) % Eos % (Auto) 2.1 (0.7-5.8) Baso % (Auto) 0.4 (0.1-1.2) % Neut # (Auto) 11.86 H (1.56-6.13) K/mm3 Lymph # (Auto) 3.00 (1.18-3.74) K/mm3 [place] # (Auto) 1.06 H (0.24-0.36) K/mm3 Eos # (Auto) 0.35 (0.04-0.36) K/mm3 Baso # (Auto) 0.06 (0.01-0.08) K/mm3 Neutrophils % (Manual) (40-60) % Band Neutrophils % (0-10) % Lymphocytes % (Manual) (20-40) % Atypical Lymphs % % Monocytes % (Manual) (2-10) % Eosinophils % (Manual) (0.7-5.8) % Basophils % (Manual) (0.1-1.2) Platelet Estimate Plt Morphology Comment RBC Morph Comment Puncture Site ABG pH (7.35-7.45) ABG pCO2 (35.0-45.0) mmHg ABG pO2 (80.0-100.0) mmHg ABG HCO3 (22.0-26.0) meq/L ABG O2 Saturation (96.0-97.0) % ABG Base Excess (-2-2.0) A-a Gradient mmHg O2 Delivery Device FiO2 (21.00-100.00) % Sodium (136-145) mEq/L Potassium (3.5-5.1) mEq/L Chloride (98-107) mEq/L Carbon Dioxide (21-32) mEq/L Anion Gap (5-15) BUN (7-18) mg/dL Creatinine (0.55-1.02) mg/dL Est Cr Clr Drug Dosing mL/min Estimated GFR (MDRD) (>60) mL/min BUN/Creatinine Ratio (14-18) Glucose (83-115) mg/dL POC Glucose 308 H (83-110) mg/dL Hemoglobin A1c (4.50-6.20) % Lactic Acid 1.7 (0.4-2.0) mmol/L Calcium (8.5-10.1) mg/dL Magnesium (1.8-2.4) mg/dl Total Bilirubin (0.2-1.0) mg/dL AST (15-37) U/L ALT (14-59) U/L Alkaline Phosphatase (46-116) U/L CK-MB (CK-2) (0-3.6) ng/ml Troponin I (0.00-0.056) ng/mL C-Reactive Protein (<1.0) mg/dL Total Protein (6.4-8.2) g/dl Albumin (3.4-5.0) g/dl Globulin gm/dL Albumin/Globulin Ratio (1-2) Vitamin D 25-Hydroxy (30.0-100.0) ng/ml Free T4 (0.76-1.46) ng/dL TSH 3rd Generation (0.358-3.74) uIU/mL Urine Color (Yellow) Urine Appearance (Clear) Urine pH (5.0-8.0) Ur Specific [place] (1.005-1.030) Urine Protein (Negative) Urine Glucose (UA) (Negative) Urine Ketones (Negative) Urine Occult Blood (Negative) Urine Nitrite (Negative) Urine Bilirubin (Negative) Urine Urobilinogen (0.2-1.0) Ur Leukocyte Esterase (Negative) Urine RBC (0-5) /hpf Urine WBC (0-5) /hpf Ur Epithelial Cells (0-5) /hpf Urine Bacteria (FEW) /hpf Urine Mucus (FEW) /hpf Ur Random Creatinine (30.0-125.0) mg/dL Ur Random Microalbumin (1.3-20.0) mg/L Microalb/Creat Ratio (0-30) mg/g Ketones (0.0-0.3) mM MRSA (PCR) 11/04/18 11/04/18 Range/Units 10:06 11:53 WBC (3.98-10.04) K/mm3 RBC (3.98-5.22) M/mm3 Hgb (11.2-15.7) gm/L Hct (34.1-44.9) % MCV (79.4-94.8) fl MCH (25.6-32.2) pg MCHC (32.2-35.5) g/dl RDW Std Deviation (36.4-46.3) fL Plt Count (182-369) K/mm3 MPV (9.4-12.3) fl Neut % (Auto) (34.0-71.1) % Lymph % (Auto) (19.3-51.7) % Grady % (Auto) (4.7-12.5) % Eos % (Auto) (0.7-5.8) Baso % (Auto) (0.1-1.2) % Neut # (Auto) (1.56-6.13) K/mm3 Lymph # (Auto) (1.18-3.74) K/mm3 [place]ady # (Auto) (0.24-0.36) K/mm3 Eos # (Auto) (0.04-0.36) K/mm3 Baso # (Auto) (0.01-0.08) K/mm3 Neutrophils % (Manual) (40-60) % Band Neutrophils % (0-10) % Lymphocytes % (Manual) (20-40) % Atypical Lymphs % % Monocytes % (Manual) (2-10) % Eosinophils % (Manual) (0.7-5.8) % Basophils % (Manual) (0.1-1.2) Platelet Estimate Plt Morphology Comment RBC Morph Comment Puncture Site ABG pH (7.35-7.45) ABG pCO2 (35.0-45.0) mmHg ABG pO2 (80.0-100.0) mmHg ABG HCO3 (22.0-26.0) meq/L ABG O2 Saturation (96.0-97.0) % ABG Base Excess (-2-2.0) A-a Gradient mmHg O2 Delivery Device FiO2 (21.00-100.00) % Sodium (136-145) mEq/L Potassium (3.5-5.1) mEq/L Chloride (98-107) mEq/L Carbon Dioxide (21-32) mEq/L Anion Gap (5-15) BUN (7-18) mg/dL Creatinine (0.55-1.02) mg/dL Est Cr Clr Drug Dosing mL/min Estimated GFR (MDRD) (>60) mL/min BUN/Creatinine Ratio (14-18) Glucose (83-115) mg/dL POC Glucose 351 H (83-110) mg/dL Hemoglobin A1c (4.50-6.20) % Lactic Acid (0.4-2.0) mmol/L Calcium (8.5-10.1) mg/dL Magnesium (1.8-2.4) mg/dl Total Bilirubin (0.2-1.0) mg/dL AST (15-37) U/L ALT (14-59) U/L Alkaline Phosphatase (46-116) U/L CK-MB (CK-2) 142.2 H (0-3.6) ng/ml Troponin I 0.136 H* (0.00-0.056) ng/mL C-Reactive Protein (<1.0) mg/dL Total Protein (6.4-8.2) g/dl Albumin (3.4-5.0) g/dl Globulin gm/dL Albumin/Globulin Ratio (1-2) Vitamin D 25-Hydroxy (30.0-100.0) ng/ml Free T4 (0.76-1.46) ng/dL TSH 3rd Generation (0.358-3.74) uIU/mL Urine Color (Yellow) Urine Appearance (Clear) Urine pH (5.0-8.0) Ur Specific [place] (1.005-1.030) Urine Protein (Negative) Urine Glucose (UA) (Negative) Urine Ketones (Negative) Urine Occult Blood (Negative) Urine Nitrite (Negative) Urine Bilirubin (Negative) Urine Urobilinogen (0.2-1.0) Ur Leukocyte Esterase (Negative) Urine RBC (0-5) /hpf Urine WBC (0-5) /hpf Ur Epithelial Cells (0-5) /hpf Urine Bacteria (FEW) /hpf Urine Mucus (FEW) /hpf Ur Random Creatinine (30.0-125.0) mg/dL Ur Random Microalbumin (1.3-20.0) mg/L Microalb/Creat Ratio (0-30) mg/g Ketones (0.0-0.3) mM MRSA (PCR) Result Diagrams: 11/04/18 05:42 11/04/18 05:42 Edgardo Results Last 24 hrs: Microbiology 11/03/18 20:30 Influenza Type A Antigen Screen - Final Nasopharyngeal Swab NEGATIVE INFLUENZA A VIRUS AG Influenza Type B Antigen Screen - Final NEGATIVE INFLUENZA B VIRUS AG - Problem List (1) Hyperglycemia due to type 2 diabetes mellitus SNOMED Code(s): 966933883727624, 251981576458036 ICD Code: E11.65 - TYPE 2 DIABETES MELLITUS WITH HYPERGLYCEMIA Status: Acute Priority: High Current Visit: Yes Qualifiers: Diabetes mellitus termite treater helper insulin use: with termite treater helper use Qualified Code( s): E11.65 - Type 2 diabetes mellitus with hyperglycemia; Z79.4 - detention ( current) use of insulin (2) Renal insufficiency SNOMED Code(s): 695264667, 391930192 ICD Code: N28.9 - DISORDER OF KIDNEY AND URETER, UNSPECIFIED Status: Acute Priority: High Current Visit: Yes (3) Dehydration SNOMED Code(s): 34105787 ICD Code: E86.0 - DEHYDRATION Status: Acute Priority: High Current Visit: Yes Onset Date: 12/23/14 (4) Dementia SNOMED Code(s): 55042750 ICD Code: F03.90 - UNSPECIFIED DEMENTIA WITHOUT BEHAVIORAL DISTURBANCE Status: Chronic Priority: High Current Visit: Yes Qualifiers: Dementia type: unspecified type Dementia behavioral disturbance: with behavioral disturbance Qualified Code(s): F03.91 - Unspecified dementia with behavioral disturbance (5) Altered mental status SNOMED Code(s): 949319965 ICD Code: R41.82 - ALTERED MENTAL STATUS, UNSPECIFIED Status: Acute Priority: High Current Visit: Yes Qualifiers: Altered mental status type: unspecified Qualified Code(s): R41.82 - Altered mental status, unspecified (6) Elevated troponin SNOMED Code(s): 344181460, 771185796, 115098717 ICD Code: R74.8 - ABNORMAL LEVELS OF OTHER SERUM ENZYMES Status: Acute Priority: High Current Visit: Yes Problem List Initiated/Reviewed/Updated: Yes Orders Last 24hrs: Active Orders 24 hr Category Date Time Status Patient Status [ADT] Routine ADT 11/03/18 21:40 Active Accu Check [Blood Glucose Check, Bedside] [RC] Care 11/03/18 22:06 Active QIDACANDBED Cardiac Monitoring [RC] CONTINUOUS Care 11/03/18 22:11 Active Height and Weight [RC] 04 Care 11/03/18 22:10 Active Intake and Output [RC] 04,16 Care 11/03/18 22:11 Active Nursing Bedside Swallow Screen [RC] ASDIRECTED Care 11/04/18 08:03 Active Oxygen Therapy [RC] PRN Care 11/03/18 22:10 Active Up With Assistance [RC] ASDIRECTED Care 11/03/18 22:10 Active Up ad Karin [RC] ASDIRECTED Care 11/03/18 22:10 Active Up to Chair [RC] ASDIRECTED Care 11/03/18 22:10 Active Consult to Case Management/Linux Consultant [CONS] Cons 11/03/18 22:10 Active Routine Consult to Speech Language Pathology [PREVENTIVE MEDICINE PHYSICIAN Evaluation Cons 11/04/18 06:54 Active and Treatment] [CONS] Routine Consult to Spiritual Care [CONS] Routine Cons 11/03/18 22:10 Active OT Evaluation and Treatment [CONS] Routine Cons 11/03/18 22:10 Active PT Evaluation and Treatment [CONS] Routine Cons 11/03/18 22:10 Active Consistent Carbohydrate Diet [DIET] Diet 11/03/18 Dinner Active BASIC METABOLIC PANEL,BMP [CHEM] AM Lab 11/05/18 05:11 Ordered BASIC METABOLIC PANEL,BMP [CHEM] AM Lab 11/06/18 05:11 Ordered C-REACTIVE PROTEIN [CHEM] AM Lab 11/05/18 05:11 Ordered C-REACTIVE PROTEIN [CHEM] AM Lab 11/06/18 05:11 Ordered CULTURE BLOOD [BC] Stat Lab 11/03/18 20:10 Received CULTURE BLOOD [BC] Stat Lab 11/03/18 20:20 Received MAGNESIUM [CHEM] AM Lab 11/05/18 05:11 Ordered MAGNESIUM [CHEM] AM Lab 11/06/18 05:11 Ordered Acetaminophen [Tylenol] Med 11/03/18 22:10 Active 650 mg PO Q4H PRN Acetaminophen/HYDROcodone [Burton 325-5 MG] Med 11/03/18 22:10 Active 1 tab PO Q4H PRN Albuterol/Ipratropium [DuoNeb 3.0-0.5 MG/3 ML] Med 11/03/18 22:10 Active 3 ml NEB Q4H PRN Aspirin [Halfprin] Med 11/04/18 09:00 Active 81 mg PO DAILY Bisacodyl [Dulcolax] Med 11/03/18 22:10 Active 5 mg PO DAILY PRN Carvedilol [Coreg] Med 11/04/18 21:00 Active 3.125 mg PO BID Clindamycin Phosphate [Cleocin] 600 mg Med 11/04/18 13:00 Active Sodium Chloride 0.9% [Normal Saline] 100 ml IV Q8H Dextrose 50% in Water Med 11/03/18 23:12 Active 50 ml IVPUSH ASDIRECTED PRN Docusate Sodium [Colace] Med 11/03/18 22:10 Active 100 mg PO BID PRN Docusate Sodium/Sennosides [Senna Plus] Med 11/03/18 22:10 Active 1 tab PO BID PRN HYDROmorphone [Dilaudid] Med 11/03/18 22:10 Active 0.25 mg IVPUSH Q2H PRN Haloperidol Lactate [Haldol] Med 11/03/18 22:47 Active 2 mg IM Q4H PRN Insulin Glarg,Human.Rec.Analog [LantUS] Med 11/04/18 21:00 Active 10 unit SUBCUT BID Insulin Lispro [HumaLOG] Med 11/04/18 08:06 Active 0 unit SUBCUT QIDACANDBED Insulin Regular, Human [HumuLIN R] 100 unit Med 11/03/18 20:13 Active Sodium Chloride 0.9% [Normal Saline] 99 ml IV ONETIME LORazepam [Ativan] Med 11/03/18 22:10 Active 0.25 mg IV Q6H PRN Lisinopril [Prinivil] Med 11/05/18 09:00 Active 2.5 mg PO DAILY Metoprolol Tartrate [Lopressor] Med 11/03/18 22:08 Active 2.5 mg IVPUSH Q4H PRN Multivitamins/Min/FA/Lut/Zeax [ICaps MV] Med 11/04/18 09:00 Active 1 tab PO DAILY Ondansetron [Zofran] Med 11/03/18 22:10 Active 4 mg IV Q6H PRN Pharmacy to Dose - Magnesium R [Pharmacy to Dose - Med 11/03/18 22:15 Active Magnesium Replacement] 1 dose .XX ASDIRECTED Pharmacy to Dose - Potassium R [Pharmacy to Dose - Med 11/03/18 22:15 Active Potassium Replacement] 1 dose .XX ASDIRECTED Polyethylene Glycol 3350 [MiraLAX] Med 11/03/18 22:10 Active 17 gm PO DAILY PRN Promethazine [Phenergan] 6.25 mg Med 11/03/18 22:10 Active Sodium Chloride 0.9% [Normal Saline] 50 ml IV Q6H Saccharomyces Boulardii [Florastor] Med 11/04/18 21:00 Active 250 mg PO BID amLODIPine [Norvasc] Med 11/04/18 09:00 Active 7.5 mg PO DAILY cefTRIAXone [Rocephin] 1 gm Med 11/04/18 12:00 Active Sodium Chloride 0.9% [Normal Saline] 100 ml IV Q24H hydrALAZINE [Apresoline] Med 11/03/18 22:08 Active 10 mg IVPUSH Q4H PRN Blood Culture x2 Reflex Set [OM.PC] Stat Oth 11/03/18 19:48 Ordered Precautions [COMM] Routine Oth 11/03/18 22:47 Ordered Code Status [Resuscitation Status] Routine Resus Stat 11/04/18 12:11 Ordered Medication Orders Acetaminophen (Tylenol) 650 mg PO Q4H PRN PRN Reason: Pain (Mild 1-3)/fever Hydrocodone Bitart/Acetaminophen ([place] 325-5 Mg) 1 tab PO Q4H PRN PRN Reason: Pain (moderate 4-6) Albuterol/Ipratropium (Duoneb 3.0-0.5 Mg/3 Ml) 3 ml NEB Q4H PRN PRN Reason: Shortness Of Breath/wheezing Amlodipine Besylate (Norvasc) 7.5 mg PO DAILY [facility] Last Admin: 11/04/18 08:57 Dose: 7.5 mg Aspirin (Halfprin) 81 mg PO DAILY [facility] Last Admin: 11/04/18 08:57 Dose: 81 mg Bisacodyl (Dulcolax) 5 mg PO DAILY PRN PRN Reason: Constipation Carvedilol (Coreg) 3.125 mg PO BID [facility] Dextrose/Water (Dextrose 50% In Water) 50 ml IVPUSH ASDIRECTED PRN PRN Reason: Hypoglycemia Docusate Sodium (Colace) 100 mg PO BID PRN PRN Reason: Constipation Haloperidol Lactate (Haldol) 2 mg IM Q4H PRN PRN Reason: Agitation Hydralazine HCl (Apresoline) 10 mg IVPUSH Q4H PRN PRN Reason: Hypertension Last Admin: 11/04/18 11:56 Dose: 10 mg Hydromorphone HCl (Dilaudid) 0.25 mg IVPUSH Q2H PRN PRN Reason: Pain (severe 7-10) Insulin Human Regular 100 unit (/ Sodium Chloride) 100 mls @ 5.05 mls/hr IV ONETIME ONE; Protocol Stop: 11/04/18 16:01 Last Titration: 11/03/18 23:15 Dose: 0 units/kg/hr, 0 mls/hr Titration: 11/03/18 22:15 Dose: 0.04 units/kg/hr, 2.5 mls/hr Admin: 11/03/18 20:43 Dose: 0.1 units/kg/hr, 5.05 mls/hr Promethazine HCl 6.25 mg/ (Sodium Chloride) 50.25 mls @ 100 mls/hr IV Q6H PRN PRN Reason: Nausea/Vomiting Clindamycin Phosphate 600 mg/ (Sodium Chloride) 104 mls @ 100 mls/hr IV Q8H [facility] Last Admin: 11/04/18 12:37 Dose: 100 mls/hr Ceftriaxone Sodium 1 gm/ (Sodium Chloride) 100 mls @ 200 mls/hr IV Q24H [facility] Last Admin: 11/04/18 11:58 Dose: 200 mls/hr Insulin Glargine (Lantus) 10 unit SUBCUT BID [facility] Insulin Human Lispro (Humalog) 0 unit SUBCUT QIDACANDBED [facility]; Protocol Last Admin: 11/04/18 12:02 Dose: 5 units Admin: 11/04/18 08:54 Dose: 4 units Lisinopril (Prinivil) 2.5 mg PO DAILY [facility] Lorazepam (Ativan) 0.25 mg IV Q6H PRN PRN Reason: Anxiety Magnesium Sulfate (Pharmacy To Dose - Magnesium Replacement) 1 dose .XX ASDIRECTED [facility] Metoprolol Tartrate (Lopressor) 2.5 mg IVPUSH Q4H PRN PRN Reason: Tachycardia Ondansetron HCl (Zofran) 4 mg IV Q6H PRN PRN Reason: Nausea/Vomiting Polyethylene Glycol (Miralax) 17 gm PO DAILY PRN PRN Reason: Constipation Potassium Chloride (Pharmacy To Dose - Potassium Replacement) 1 dose .XX ASDIRECTED [facility] Saccharomyces Boulardii (Florastor) 250 mg PO BID [facility] Senna/Docusate Sodium (Senna Plus) 1 tab PO BID PRN PRN Reason: Constipation Vit A/Vit C/Vit E/Selen/Cu/Zn/Lutei (Icaps Mv) 1 tab PO DAILY [facility] Last Admin: 11/04/18 08:57 Dose: 1 tab Assessment/Plan Comment:: I/P: Acute: Hyperglycemia -Blood glucose noted to be >600 at [facility] -Glucose 749 in ED -Started on insulin drip in ED - discontinued -Multiple fluid boluses given in ED -Ketones 0.35; No serum osmolality drawn -Urine random creatinine 25.8, Urine random microalbumin 84.8, microalbumin/ creatinine ratio 328.6 -A1C 10.0 -Family reports patient has been spitting out meds including oral diabetic meds -Stop PO diabetic meds -Increase lantus to 10 units BID -Low dose sliding scale insulin -QID AC and Bedtime glucose checks -Blood glucose readings improved today Questionable aspiration pneumonia -Reported worsened AMS on arrival to ED -WBC 13.10-->16.36 -CRP 1.0 -CXR in ED: Questionable increased density within the right upper lung as an interval change from prior study. Minimal area of pneumonia is difficult to exclude. -Aspiration precautions -Nursing bedside swallow exam: no concerns -Start clindamycin and rocephin -RT/Cough, turn, deep breath -Will be unable to utilize IS/acapella -PRN albuterol and duonebs -Repeat CXR in 24-48 hours -BID probiotic -Blood cultures pending -Lactic acid 4.8 (elevated due to dehydration) -->1.7 -IV fluids as ordered Elevated troponins -Troponin 0.062-->0.103-->0.129-->0.136 -No prior troponins on record for comparison -Discussed with family. They are unwilling to pursue cardiac care or transfer. -Will discontinue future lab draws -Start coreg 3.125mg BID -Start Lisinopril 2.5mg dialy AMS -Has baseline dementia -Family reports much worse in ED and day prior -Family has reportedly refused all dementia medications -CT of head obtained 11/04/18: 1. Enlarged ventricular system slightly out of proportion to the cortical atrophy. Difficult to completely exclude normal partial hydrocephalus although findings could represent diffuse atrophy with greater central component. Please correlate if patient has any clinical symptoms of NPH. 2. Other senescent changes as noted above. 3. Nothing acute is otherwise seen. -Query NPH -CT scan as above -Family reports gait instability -Family reports urinary incontinence -Nursing and PREVENTIVE MEDICINE PHYSICIAN swallow evaluation -Per family she is back at baseline confusion today CLAUDETTE, resolved -No prior draws to determine baseline -2/2 dehydration -Creatinine 1.6-->1.2-->0.8 -BUN 47-->41-->33 -eGFR 31-->43--> greater than 60 Dehydration, resolved -Anion gap 18.1 in ED -Dry mucous membranes in ED -Multiple fluid boluses given in ED Chronic: Dementia Type II DM HTN Colitis Plan: Admit to ICU Routine AM Labs Home medications as ordered DVT/PE prophylaxis: Lovenox PT/OT CM/SW Spiritual care consult Other orders as indicated above Code statu: DNR/DNI (confirmed with family); PCP: Dr. Beata Marcum, including daughter who is POA were at bedside and updated by myself and Dr. Lew. All were in agreement with plan.
[2018-11-04] MEDS ORDERED: Lactated Ringers 1,000 ML IV SCH (17:00)
[2018-11-04] MEDS: Carvedilol 3.125 MG Tab PO SCH (20:04)
[2018-11-04] MEDS: Saccharomyces Boulardii (Probiotic) 250 MG Cap PO SCH (20:04)
[2018-11-04] MEDS: Insulin Glarg,Human.Rec.Analog 100 UNIT/ML ML SUBCUT SCH (21:16)
[2018-11-05] MEDS: Clindamycin Phosphate 600 MG in Sodium Chloride 0.9% 100 ML IV SCH (05:18)
[2018-11-05] MEDS: Insulin Lispro 100 Unit/ML 3 ML KwikPen SUBCUT SCH ×2 (07:46→12:41)
[2018-11-05] MEDS ORDERED: Enoxaparin 40 MG/0.4 ML Syringe SUBCUT SCH (09:00)
[2018-11-05] MEDS ORDERED: Lisinopril 2.5 MG Tab PO SCH (09:00)
--- NOTE | 2018-11-05 10:28 | PCM.PN ---
- General Info Date of Service: 11/05/18 Admission Dx/Problem (Free Text): Admission Diagnosis/Problem Admission Diagnosis/Problem Hyperglycemia Functional Status: Reports: Pain Controlled, Tolerating Diet, Ambulating, Urinating. Denies: New Symptoms - Review of Systems General: Denies: Fever Pulmonary: Denies: Cough, Wheezing Gastrointestinal: Denies: Diarrhea, Vomiting Skin: Denies: Cyanosis Neurological: Reports: Confusion, Pre-Existing Deficit Systems Review Comment:: Patient too confused to give reliable ROS. ROS that was obtained was from nursing and family. - Patient Data Vitals - Most Recent: Last Vital Signs Temp 97.2 F 11/05/18 08:00 Pulse 81 11/05/18 08:00 Resp 18 11/05/18 08:00 BP 156/96 H 11/05/18 08:00 Pulse Ox 100 11/05/18 08:00 Weight - Most Recent: 118 lb 4.8 oz I&O - Last 24 Hours: Intake & Output 11/04/18 11/05/18 11/05/18 22:59 06:59 14:59 Intake Total 2716 704 Output Total 300 500 Balance 2416 204 Lab Results Last 24 Hours: Laboratory Results - last 24 hr 11/04/18 11/04/18 11/04/18 Range/Units 10:06 11:53 13:07 Sodium (136-145) mEq/L Potassium (3.5-5.1) mEq/L Chloride (98-107) mEq/L Carbon Dioxide (21-32) mEq/L Anion Gap (5-15) BUN (7-18) mg/dL Creatinine (0.55-1.02) mg/dL Est Cr Clr Drug Dosing mL/min Estimated GFR (MDRD) (>60) mL/min BUN/Creatinine Ratio (14-18) Glucose (83-115) mg/dL POC Glucose 351 H (83-110) mg/dL Calcium (8.5-10.1) mg/dL Magnesium (1.8-2.4) mg/dl CK-MB (CK-2) 142.2 H (0-3.6) ng/ml Troponin I 0.136 H* (0.00-0.056) ng/mL C-Reactive Protein (<1.0) mg/dL MRSA (PCR) Negative 11/04/18 11/04/18 11/05/18 Range/Units 17:23 21:14 06:02 Sodium 138 (136-145) mEq/L Potassium 3.9 (3.5-5.1) mEq/L Chloride 106 (98-107) mEq/L Carbon Dioxide 25 (21-32) mEq/L Anion Gap 10.9 (5-15) BUN 21 H (7-18) mg/dL Creatinine 0.6 (0.55-1.02) mg/dL Est Cr Clr Drug Dosing 58.16 mL/min Estimated GFR (MDRD) > 60 (>60) mL/min BUN/Creatinine Ratio 35.0 H (14-18) Glucose 136 H (83-115) mg/dL POC Glucose 142 H 325 H (83-110) mg/dL Calcium 8.3 L (8.5-10.1) mg/dL Magnesium 1.8 (1.8-2.4) mg/dl CK-MB (CK-2) (0-3.6) ng/ml Troponin I (0.00-0.056) ng/mL C-Reactive Protein 0.9 (<1.0) mg/dL MRSA (PCR) Edgardo Results Last 24 Hours: Microbiology 11/03/18 20:20 Aerobic Blood Culture - Preliminary Blood - Venous - Lab Draw NO GROWTH AFTER 1 DAY Anaerobic Blood Culture - Preliminary NO GROWTH AFTER 1 DAY 11/03/18 20:10 Aerobic Blood Culture - Preliminary Blood - Venous NO GROWTH AFTER 1 DAY Anaerobic Blood Culture - Preliminary NO GROWTH AFTER 1 DAY Med Orders - Current: Current Medications Acetaminophen (Tylenol) 650 mg PO Q4H PRN PRN Reason: Pain (Mild 1-3)/fever Hydrocodone Bitart/Acetaminophen ([place] 325-5 Mg) 1 tab PO Q4H PRN PRN Reason: Pain (moderate 4-6) Albuterol/Ipratropium (Duoneb 3.0-0.5 Mg/3 Ml) 3 ml NEB Q4H PRN PRN Reason: Shortness Of Breath/wheezing Amlodipine Besylate (Norvasc) 7.5 mg PO DAILY [facility] Last Admin: 11/04/18 08:57 Dose: 7.5 mg Aspirin (Halfprin) 81 mg PO DAILY [facility] Last Admin: 11/04/18 08:57 Dose: 81 mg Bisacodyl (Dulcolax) 5 mg PO DAILY PRN PRN Reason: Constipation Carvedilol (Coreg) 3.125 mg PO BID [facility] Last Admin: 11/04/18 20:04 Dose: 3.125 mg Dextrose/Water (Dextrose 50% In Water) 50 ml IVPUSH ASDIRECTED PRN PRN Reason: Hypoglycemia Docusate Sodium (Colace) 100 mg PO BID PRN PRN Reason: Constipation Enoxaparin Sodium (Lovenox) 40 mg SUBCUT DAILY [facility] Haloperidol Lactate (Haldol) 2 mg IM Q4H PRN PRN Reason: Agitation Hydralazine HCl (Apresoline) 10 mg IVPUSH Q4H PRN PRN Reason: Hypertension Last Admin: 11/04/18 11:56 Dose: 10 mg Hydromorphone HCl (Dilaudid) 0.25 mg IVPUSH Q2H PRN PRN Reason: Pain (severe 7-10) Promethazine HCl 6.25 mg/ (Sodium Chloride) 50.25 mls @ 100 mls/hr IV Q6H PRN PRN Reason: Nausea/Vomiting Clindamycin Phosphate 600 mg/ (Sodium Chloride) 104 mls @ 100 mls/hr IV Q8H [facility] Last Admin: 11/05/18 05:18 Dose: 100 mls/hr Ceftriaxone Sodium 1 gm/ (Sodium Chloride) 100 mls @ 200 mls/hr IV Q24H [facility] Last Admin: 11/04/18 11:58 Dose: 200 mls/hr Lactated Ringer's (Ringers, Lactated) 1,000 mls @ 25 mls/hr IV ASDIRECTED [facility] Insulin Glargine (Lantus) 10 unit SUBCUT BID [facility] Last Admin: 11/04/18 21:16 Dose: 10 units Insulin Human Lispro (Humalog) 0 unit SUBCUT QIDACANDBED [facility]; Protocol Last Admin: 11/05/18 07:46 Dose: Not Given Lorazepam (Ativan) 0.25 mg IV Q6H PRN PRN Reason: Anxiety Losartan Potassium (Cozaar) 12.5 mg PO DAILY [facility] Magnesium Sulfate (Pharmacy To Dose - Magnesium Replacement) 1 dose .XX ASDIRECTED [facility] Metoprolol Tartrate (Lopressor) 2.5 mg IVPUSH Q4H PRN PRN Reason: Tachycardia Ondansetron HCl (Zofran) 4 mg IV Q6H PRN PRN Reason: Nausea/Vomiting Polyethylene Glycol (Miralax) 17 gm PO DAILY PRN PRN Reason: Constipation Potassium Chloride (Pharmacy To Dose - Potassium Replacement) 1 dose .XX ASDIRECTED [facility] Saccharomyces Boulardii (Florastor) 250 mg PO BID [facility] Last Admin: 11/04/18 20:04 Dose: 250 mg Senna/Docusate Sodium (Senna Plus) 1 tab PO BID PRN PRN Reason: Constipation Vit A/Vit C/Vit E/Selen/Cu/Zn/Lutei (Icaps Mv) 1 tab PO DAILY [facility] Last Admin: 11/04/18 08:57 Dose: 1 tab Discontinued Medications Alogliptin Benzoate (Alogliptin) 12.5 mg PO DAILY [facility] Last Admin: 11/04/18 12:27 Dose: Not Given Glipizide (Glucotrol Xl) 10 mg PO BIDMEALS [facility] Last Admin: 11/04/18 08:47 Dose: Not Given Glipizide (Glucotrol Xl) 10 mg PO 1200,1900 [facility] Insulin Human Regular 100 unit (/ Sodium Chloride) 100 mls @ 0.5 mls/hr IV TITRATE [facility]; Protocol Lactated Ringer's (Ringers, Lactated) 1,000 mls @ 999 mls/hr IV .BOLUS ONE Stop: 11/03/18 20:53 Last Admin: 11/03/18 20:20 Dose: 999 mls/hr Insulin Human Regular 100 unit (/ Sodium Chloride) 100 mls @ 5.05 mls/hr IV ONETIME ONE; Protocol Stop: 11/04/18 16:01 Last Titration: 11/03/18 23:15 Dose: 0 units/kg/hr, 0 mls/hr Lactated Ringer's (Ringers, Lactated) 1,000 mls @ 999 mls/hr IV .BOLUS ONE Stop: 11/03/18 22:51 Last Admin: 11/03/18 21:58 Dose: 999 mls/hr Lactated Ringer's (Ringers, Lactated) 1,000 mls @ 125 mls/hr IV ASDIRECTED [facility] Last Admin: 11/04/18 09:15 Dose: 125 mls/hr Potassium Chloride 10 meq/ (Premix) 100 mls @ 100 mls/hr IV Q1H [facility] Stop: 11/04/18 01:44 Last Admin: 11/04/18 01:15 Dose: 100 mls/hr Insulin Glargine (Lantus) 4 unit SUBCUT DAILY [facility] Last Admin: 11/04/18 09:50 Dose: 4 units Insulin Human Lispro (Humalog) 1 unit SUBCUT QIDACANDBED [facility] Last Admin: 11/04/18 09:55 Dose: Not Given Insulin Human Regular (Humulin R) 5 unit IV ONETIME [facility] Stop: 11/03/18 19:51 Last Admin: 11/03/18 20:19 Dose: 5 units Lisinopril (Prinivil) 2.5 mg PO DAILY [facility] Non-Formulary Medication (Sitagliptin) 100 mg PO DAILY [facility] Potassium Chloride (Klor-Con M20) 40 meq PO Q4H [facility] Stop: 11/04/18 04:01 - Exam Quality Assessment: DVT Prophylaxis. No: Supplemental Oxygen General: Alert, No Acute Distress. No: Oriented, Cooperative (pleasant but too confused to follow directions) HEENT: Pupils Equal, Pupils Reactive, EOMI, Mucous Membr. Moist/[place] Neck: Supple, Trachea Midline, No JVD Lungs: Clear to Auscultation, Normal Respiratory Effort Cardiovascular: Regular Rate, Regular Rhythm GI/Abdominal Exam: Normal Bowel Sounds, Soft, Non-Tender, No Distention, No Abnormal Bruit (Female) Exam: Deferred Back Exam: Normal Inspection, Full Range of Motion Extremities: Normal Inspection, Normal Range of Motion, Non-Tender, No Pedal Edema, Normal Capillary Refill Peripheral Pulses: 2+: Radial (L), Radial (R), Dorsalis Pedis (L), Dorsalis Pedis (R) Skin: Warm, Dry, Intact Neurological: No New Focal Deficit Psy/Mental Status: Alert, Normal Affect, Normal Mood - Problem List & Annotations (1) Hyperglycemia due to type 2 diabetes mellitus SNOMED Code(s): 628845644325517, 065975202847085 Code(s): E11.65 - TYPE 2 DIABETES MELLITUS WITH HYPERGLYCEMIA Status: Resolved Priority: High Current Visit: Yes Qualifiers: Diabetes mellitus long-term insulin use: with mixing machine tender use Qualified Code( s): E11.65 - Type 2 diabetes mellitus with hyperglycemia; Z79.4 - alf ( current) use of insulin (2) Renal insufficiency SNOMED Code(s): 021616280, 760043856 Code(s): N28.9 - DISORDER OF KIDNEY AND URETER, UNSPECIFIED Status: Resolved Priority: High Current Visit: Yes (3) Dehydration SNOMED Code(s): 92577239 Code(s): E86.0 - DEHYDRATION Status: Resolved Priority: High Current Visit: Yes Onset Date: 12/23/14 (4) Dementia SNOMED Code(s): 45396080 Code(s): F03.90 - UNSPECIFIED DEMENTIA WITHOUT BEHAVIORAL DISTURBANCE Status: Chronic Priority: High Current Visit: Yes Qualifiers: Dementia type: unspecified type Dementia behavioral disturbance: with behavioral disturbance Qualified Code(s): F03.91 - Unspecified dementia with behavioral disturbance (5) Altered mental status SNOMED Code(s): 666829082 Code(s): R41.82 - ALTERED MENTAL STATUS, UNSPECIFIED Status: Resolved Priority: High Current Visit: Yes Qualifiers: Altered mental status type: unspecified Qualified Code(s): R41.82 - Altered mental status, unspecified (6) Elevated troponin SNOMED Code(s): 550757739, 615479261, 095400505 Code(s): R74.8 - ABNORMAL LEVELS OF OTHER SERUM ENZYMES Status: Acute Priority: High Current Visit: Yes (7) Type II diabetes mellitus SNOMED Code(s): 56406774 Code(s): E11.9 - TYPE 2 DIABETES MELLITUS WITHOUT COMPLICATIONS Status: Chronic Priority: High Current Visit: Yes Qualifiers: Diabetes mellitus mixing machine tender insulin use: with mixing machine tender use Diabetes mellitus complication status: with unspecified complications Qualified Code(s) : E11.8 - Type 2 diabetes mellitus with unspecified complications; Z79.4 - alf (current) use of insulin (8) HTN (hypertension) SNOMED Code(s): 75218888 Code(s): I10 - ESSENTIAL (PRIMARY) HYPERTENSION Status: Chronic Priority : [facility] Current Visit: No Qualifiers: Hypertension type: unspecified Qualified Code(s): I10 - Essential (primary ) hypertension - Problem List Review Problem List Initiated/Reviewed/Updated: Yes - My Orders Last 24 Hours: My Active Orders 11/04/18 15:07 Aspiration Precautions [RC] ASDIRECTED 11/04/18 15:08 Consult to Respiratory Therapy [Respiratory Care Assess and Treatment] [CONS] Routine 11/04/18 15:09 Turn, Cough, Deep Breathe [RC] .PRN 11/04/18 15:22 Consult to Speech Language Pathology [GARMENT FINISHER Evaluation and Treatment] [CONS] Routine 11/05/18 08:00 CXR [Chest 2V] [CR] Routine 11/05/18 09:00 Enoxaparin [Lovenox] 40 mg SUBCUT DAILY - Plan Plan:: I/P: Acute: Hyperglycemia -Blood glucose noted to be >600 at [facility] -Glucose 749 in ED--> now 136 -Started on insulin drip in ED - discontinued -Multiple fluid boluses given in ED -Ketones 0.35; No serum osmolality drawn -Urine random creatinine 25.8, Urine random microalbumin 84.8, microalbumin/ creatinine ratio 328.6 -A1C 10.0 -Family reports patient has been spitting out meds including oral diabetic meds -Stop PO diabetic meds -Increase lantus to 10 units BID -Low dose sliding scale insulin -QID AC and Bedtime glucose checks -Blood glucose readings improved on floor Questionable aspiration pneumonia -Reported worsened AMS on arrival to ED -WBC 13.10-->16.36 -CRP 1.0-->0.9 -CXR in ED: Questionable increased density within the right upper lung as an interval change from prior study. Minimal area of pneumonia is difficult to exclude. -Aspiration precautions -Nursing bedside swallow exam: no concerns -Start clindamycin and rocephin--> stop clindamycin and start flagyl at recommendation of pharmacy -RT/Cough, turn, deep breath -Will be unable to utilize IS/acapella -PRN albuterol and duonebs -Repeat CXR in 24-48 hours -BID probiotic -Blood cultures negative so far -Lactic acid 4.8 (elevated due to dehydration) -->1.7 -IV fluids as ordered Resolved: CLAUDETTE, resolved -No prior draws to determine baseline -2/2 dehydration -Creatinine 1.6-->1.2-->0.8 -BUN 47-->41-->33 -eGFR 31-->43--> greater than 60 Dehydration, resolved -Anion gap 18.1 in ED -Dry mucous membranes in ED -Multiple fluid boluses given in ED AMS, resolved -Has baseline dementia -Family reports much worse in ED and day prior -Family has reportedly refused all dementia medications -CT of head obtained 11/04/18: 1. Enlarged ventricular system slightly out of proportion to the cortical atrophy. Difficult to completely exclude normal partial hydrocephalus although findings could represent diffuse atrophy with greater central component. Please correlate if patient has any clinical symptoms of NPH. 2. Other senescent changes as noted above. 3. Nothing acute is otherwise seen. -Query NPH -CT scan as above -Family reports gait instability -Family reports urinary incontinence -Nursing and GARMENT FINISHER swallow evaluation -Per family she is back at baseline confusion today Inactive: Elevated troponins -Troponin 0.062-->0.103-->0.129-->0.136 -No prior troponins on record for comparison -Discussed with family. They are unwilling to pursue cardiac care or transfer. -Will discontinue future lab draws -Start coreg 3.125mg BID -Start Lisinopril 2.5mg dialy Chronic: Dementia Type II DM HTN Colitis Plan: Admit to ICU--> downgrade to M/S/P status Routine AM Labs Home medications as ordered DVT/PE prophylaxis: Lovenox PT/OT CM/SW Spiritual care consult Other orders as indicated above Code statu: DNR/DNI (confirmed with family); PCP: Dr. Cota Family, including daughter who is POA were at bedside and updated by myself and Dr. Lew. All were in agreement with plan.
[2018-11-05] MEDS: amLODIPine 2.5 MG Tab PO SCH ×2 (10:51→11:37)
[2018-11-05] MEDS: Multivitamins with Minerals/Folic Acid/Lutein/Zeaxanth Tab PO SCH ×2 (10:51→11:37)
[2018-11-05] MEDS: Losartan 25 MG Tab PO SCH ×2 (10:51→11:37)
[2018-11-05] MEDS: Carvedilol 3.125 MG Tab PO SCH ×2 (10:52→11:36)
[2018-11-05] MEDS: Aspirin 81 MG Tab.EC PO SCH ×2 (10:52→11:37)
[2018-11-05] MEDS: Saccharomyces Boulardii (Probiotic) 250 MG Cap PO SCH ×2 (10:52→11:37)
[2018-11-05] MEDS: Insulin Glarg,Human.Rec.Analog 100 UNIT/ML ML SUBCUT SCH (10:57)
--- NOTE | 2018-11-05 11:20 | CR ---
Chest: Two views of the chest were obtained. Comparison: Prior chest x-ray of 11/03/18. Slight apical pleural thickening is noted. Heart size at the upper limits of normal. Tortuous thoracic aorta is seen. Lungs are clear with no acute parenchymal change. Lungs are slightly hyperinflated. Bony structures are osteopenic but intact. Surgical clips are noted from prior cholecystectomy. Several surgical clips are also seen within the left upper abdomen. Impression: 1. Possible emphysematous change. 2. Nothing acute is appreciated. Diagnostic code #2
[2018-11-05 11:37] VITALS: BP 157/92
--- NOTE | 2018-11-05 12:49 | PCM.DCSUM1 ---
Discharge Summary - Hospital Course HPI Initial Comments: Alexa Cazares is an 83 yo female who presented to our ED yesterday evening from [facility] with hyperglycemia and weakness. EMS reports that [facility] on the patient's sugars to be over 600. Patient' s daughter is with patient and reports she has a history of diabetes and is on insulin. To the best of her knowledge she believes her mother's blood sugars are checked twice a day and she is unsure what the normal ranges. She reports from what she is aware of patient's blood sugars were normal up until yesterday but were elevated today. She reports the patient has not been eating and is unsure if she was given her normal dose of insulin or not. Daughter is not aware of any infectious symptoms such as cough, fever, or rash. In the ED Accu- Chek is greater than 400. She is tachycardic, afebrile, and oxygen saturations are 95% on room air. She is confused and unable to provide any meaningful history. In the ED temperature was 36.7C. Pulse 113. Respirations 18. Blood pressure 143/89. Pulse ox 95% on room air. An: WBC is 13.10. Hemoglobin 15.6. Hematocrit 48.8. She is slightly macrocytic. Platelets are good at 345,000. Neutrophils are elevated at 880%. There is no bandemia. Sodium is 147. Potassium 4.1. Chloride 109. Carbon dioxide 24. Anion gap 18.1. BUN is 47. Creatinine 1.6. EGFR 31. Glucose is 749. Calcium is 104. Magnesium 2.9. AST is 140, ALT 48, alkaline phosphatase 92. Troponin 0.062. Protein is 8.4. Albumin 3.7. ABG is obtained and the left radial showing a pH of 7.34. PCO2 39.9. PO2 66.0. HCO3 is 20.9. O2 saturation is 90.5. Base excess is -4.1. A- a gradient is 18. This is while on room air. Lactic acid was obtained and found to be 4.8. Ketones are 0.35. UA is negative however one plus protein, 2 + glucose, 3+ occult blood is noted. She is started on insulin drip and given multiple boluses of LR. Influenza swab was negative and blood cultures were obtained. Chest x-ray is obtained and reviewed by Dr. Malave as "one questionable increased density within the right upper lung as an interval change from prior study. Minimal area of pneumonia is difficult to exclude. 2. Other incidental findings." Twelve-lead EKG is obtained which shows a sinus tachycardia at a rate of 109 BPM with enlarged P-waves. She carries a history of: Hypertension, colitis, dementia, type II DM. She was never a smoker. She is a DNR/DNI. Her PCP is Dr. Cota. Diagnosis: Stroke: No Modified Oxford Scale: No Symptoms at All Modified Leona Scale Score: 0 - Discharge Data Discharge Date: 11/05/18 (Admit date ) Discharge Disposition: DC/Tfer to Other 70 Condition: Good - Discharge Diagnosis/Problem(s) (1) Hyperglycemia due to type 2 diabetes mellitus SNOMED Code(s): 055921339938433, 601660247732268 ICD Code: E11.65 - TYPE 2 DIABETES MELLITUS WITH HYPERGLYCEMIA Status: Resolved Priority: High Current Visit: Yes Qualifiers: Diabetes mellitus snf insulin use: with snf use Qualified Code( s): E11.65 - Type 2 diabetes mellitus with hyperglycemia; Z79.4 - long term care phlebotomist ( current) use of insulin (2) Renal insufficiency SNOMED Code(s): 691965436, 739839232 ICD Code: N28.9 - DISORDER OF KIDNEY AND URETER, UNSPECIFIED Status: Resolved Priority: High Current Visit: Yes (3) Dehydration SNOMED Code(s): 86662670 ICD Code: E86.0 - DEHYDRATION Status: Resolved Priority: High Current Visit: Yes Onset Date: 12/23/14 (4) Dementia SNOMED Code(s): 08984492 ICD Code: F03.90 - UNSPECIFIED DEMENTIA WITHOUT BEHAVIORAL DISTURBANCE Status: Chronic Priority: High Current Visit: Yes Qualifiers: Dementia type: unspecified type Dementia behavioral disturbance: with behavioral disturbance Qualified Code(s): F03.91 - Unspecified dementia with behavioral disturbance (5) Altered mental status SNOMED Code(s): 961686605 ICD Code: R41.82 - ALTERED MENTAL STATUS, UNSPECIFIED Status: Resolved Priority: High Current Visit: Yes Problem Details: - HAs hx/o Dementia Qualifiers: Altered mental status type: delirium Qualified Code(s): R41.0 - Disorientation, unspecified (6) Elevated troponin SNOMED Code(s): 505664367, 694934939, 648637740 ICD Code: R74.8 - ABNORMAL LEVELS OF OTHER SERUM ENZYMES Status: Acute Priority: High Current Visit: Yes Problem Details: - Cannot r/o NSTEMI (7) Type II diabetes mellitus SNOMED Code(s): 98482390 ICD Code: E11.9 - TYPE 2 DIABETES MELLITUS WITHOUT COMPLICATIONS Status: Chronic Priority: High Current Visit: Yes Problem Details: - Not well controlled Qualifiers: Diabetes mellitus snf insulin use: without joint terminal attack controller use Diabetes mellitus complication status: with unspecified complications Qualified Code(s) : E11.8 - Type 2 diabetes mellitus with unspecified complications (8) HTN (hypertension) SNOMED Code(s): 48570836 ICD Code: I10 - ESSENTIAL (PRIMARY) HYPERTENSION Status: Chronic Priority : Medium Current Visit: No Qualifiers: Hypertension type: unspecified Qualified Code(s): I10 - Essential (primary ) hypertension - Patient Summary/Data Consults: Consultations 11/03/18 22:10 Consult to Case Management/Hand Stripper [CONS] Routine Consult to Spiritual Care [CONS] Routine OT Evaluation and Treatment [CONS] Routine PT Evaluation and Treatment [CONS] Routine 11/04/18 15:08 Consult to Respiratory Therapy [Respiratory Care Assess and Treatment] [CONS] Routine 11/04/18 15:22 Consult to Speech Language Pathology [PEDIATRIC NEUROPSYCHOLOGIST Evaluation and Treatment] [CONS] Routine Labs Pending at D/C: None Recommended Follow-up Testing/Procedures: Follow-up with PCP within 1 week of discharge, sooner of needed. Hospital Course: I/P: Acute: Hyperglycemia -Blood glucose noted to be >600 at [facility] -Glucose 749 in ED--> now 136 -Started on insulin drip in ED - discontinued -Multiple fluid boluses given in ED -Ketones 0.35; No serum osmolality drawn -Urine random creatinine 25.8, Urine random microalbumin 84.8, microalbumin/ creatinine ratio 328.6 -A1C 10.0 -Family reports patient has been spitting out meds including oral diabetic meds -Stop PO diabetic meds -Increase lantus to 10 units BID -Low dose sliding scale insulin -QID AC and Bedtime glucose checks -Blood glucose readings improved on floor Inactive: Questionable aspiration pneumonia -> repeat CXR is unremarkable, she has not aspirated -Reported worsened AMS on arrival to ED -WBC 13.10-->16.36-->12.40 -CRP 1.0-->0.9 -CXR in ED: Questionable increased density within the right upper lung as an interval change from prior study. Minimal area of pneumonia is difficult to exclude. -Aspiration precautions -Nursing bedside swallow exam: no concerns -Start clindamycin and rocephin--> stop clindamycin and start flagyl at recommendation of pharmacy -RT/Cough, turn, deep breath -Will be unable to utilize IS/acapella -PRN albuterol and duonebs -Repeat CXR in 24-48 hours -BID probiotic -Blood cultures negative so far -Lactic acid 4.8 (elevated due to dehydration) -->1.7 -IV fluids as ordered Resolved: CLAUDETTE, resolved -No prior draws to determine baseline -2/2 dehydration -Creatinine 1.6-->1.2-->0.8 -BUN 47-->41-->33 -eGFR 31-->43--> greater than 60 Dehydration, resolved -Anion gap 18.1 in ED -Dry mucous membranes in ED -Multiple fluid boluses given in ED AMS, resolved -Has baseline dementia -Family reports much worse in ED and day prior -Family has reportedly refused all dementia medications -CT of head obtained 11/04/18: 1. Enlarged ventricular system slightly out of proportion to the cortical atrophy. Difficult to completely exclude normal partial hydrocephalus although findings could represent diffuse atrophy with greater central component. Please correlate if patient has any clinical symptoms of NPH. 2. Other senescent changes as noted above. 3. Nothing acute is otherwise seen. -Query NPH -CT scan as above -Family reports gait instability -Family reports urinary incontinence -Nursing and PEDIATRIC NEUROPSYCHOLOGIST swallow evaluation -Per family she is back at baseline confusion today Inactive: Elevated troponins/NON-STEMI -Troponin 0.062-->0.103-->0.129-->0.136 -No prior troponins on record for comparison -Discussed with family. They are unwilling to pursue cardiac care or transfer. -Will discontinue future lab draws -Start coreg 3.125mg BID -Start losartan 12.5mg daily (Hx/o allergic rxn to ACEI) Chronic: Dementia Type II DM HTN Colitis Plan: Admit to ICU--> downgrade to M/S/P status Routine AM Labs Home medications as ordered DVT/PE prophylaxis: Lovenox PT/OT CM/SW Spiritual care consult Other orders as indicated above Code statu: DNR/DNI (confirmed with family); PCP: Dr. Cota Alexa came into our ED with AMS and a very high blood glucose level. She was started on an insulin drip and given multiple fluid boluses. There were some concerns over a possible aspiration pneumonia and she was started on clindamycin and rocephin. Clindamycin was later changed to flagyl at the recommendation of pharmacy. Further CXR shows nothing concerning for aspiration and these medications were discontinued. She has not had any infectious symptoms such as fever here. The patient has significant dementia and it is reported the family selective in what medications they would like her to have. Family reports Alexa has been holding medications in her cheeks and later spitting it out or flat out spitting the medications out when trying to give them right away. It is questioned if this is the reason her sugars became so high as she was likely not receiving the recommended dosing. Her diabetic medications were changed to injectable insulin by Dr. Lew. She was found to have elevated troponins which were still slowly increasing. This was discussed with family, including the patients daughter who is POA, and the decision was made to not pursue this further. Coreg 3.125 BID and Losartan 12.5mg were started. Medications were reviewed and all her discharge medications were ensured to be able to be crushed. Head CT was suggestive of NPH as above as the patient has dementia symptoms, gait instability, and urinary incontinence. This was discussed with the family and should be investigated further by the PCP. Prior to discharge her blood glucose readings remained in the 100's and per family her mental status was back to baseline. She will be discharged on the Coreg and Losarta as mentioned before, along with 6 units lantus BID and low dose insulin sliding scale. This was discussed with family and all were in agreement for these discharge medications. She has been receiving PT/OT while here and this should continue at [facility] as well. There were some concerns over whether or not she would be appropriate for [facility] however family and [facility] staff reported they would be willing to continue there with a SNF plan B, which is reasonable. She will be discharged today back to [facility]. I personally met [id number] with Alexa and her family to discuss her homebound status. She is very demented and has difficulty with transportation and ambulation. Due to the above mentioned diagnoses it is believed she would benefit from home health nursing along with PT/OT services. Dr. Cota is her PCP and he can monitor her progress and adjust services as he feels appropriate after discharge. - Patient Instructions Diet: Diabetic Diet Activity: As Tolerated Driving: Do Not Drive Notify Provider of: Fever, Increased Pain, Nausea and/or Vomiting Other/Special Instructions: - Please take all new medications as directed. - Resume all home medications and routine home activities as tolerated per PT/OT. - Recommend accu-check QID AC/HS. Show log on follow up appointment with PCP. - Call or follow up with your PCP for any questions or concerns after discharge. - Follow up with your PCP in 1 week. - Come back or seek immediate care should your symptoms persist or get worse - Discharge Plan *PRESCRIPTION DRUG MONITORING PROGRAM REVIEWED*: Not Applicable *COPY OF PRESCRIPTION DRUG MONITORING REPORT IN PATIENT SOHAM: Not Applicable Prescriptions/Med Rec: Carvedilol [Coreg] 3.125 mg PO BID #60 tablet Insulin Lispro [Humalog] See Protocol SUBCUT QIDACANDBED #1 pen Losartan [Cozaar] 12.5 mg PO DAILY #20 tablet Home Medications: Home Meds Amlodipine. 7.5 mg PO DAILY 12/23/14 [History] Aspirin 81 mg PO DAILY 11/03/18 [History] Beta-Carotene(A) w/C & E/Min [Prosight] 1 tab PO DAILY 11/03/18 [History] Sodium Phosphate,[place]-Dibasic [Enema Ready To Use] 133 ml RC DAILY PRN 11/04/18 [History] Carvedilol [Coreg] 3.125 mg PO BID #60 tablet 11/05/18 [Rx] Insulin Glarg,Human.Rec.Analog [Lantus] 6 units SUBCUT BID #1 11/05/18 [Rx] Insulin Lispro [Humalog] See Protocol SUBCUT QIDACANDBED #1 pen 11/05/18 [Rx] Losartan [Cozaar] 12.5 mg PO DAILY #20 tablet 11/05/18 [Rx] Oxygen Therapy Mode: Room Air Patient Handouts: Acute Kidney Injury, Adult, Aspiration Precautions, Adult, Type 2 Diabetes Mellitus, Self Care, Adult, [id number], Hypertension, Easy-to- Read, Delirium, Dementia, [id number], Dehydration, Elderly, [id number] Referrals: Stalin Cota MD [Primary Care Provider] - - Discharge Summary/Plan Comment DC Time >30 min.: Yes (40 mins ) - General Info Date of Service: 11/05/18 Admission Dx/Problem (Free Text: Admission Diagnosis/Problem Admission Diagnosis/Problem Hyperglycemia Subjective Update: In to see Alexa. She is sitting in the chair resting but opens eyes to her name and responds to me talking to her. She is still very confused and does not make any sense when answering questions. No nursing or family concerns. Her labs remain stable. She will be discharged today. Functional Status: Reports: Pain Controlled, Tolerating Diet, Urinating. Denies : Ambulating, New Symptoms - Review of Systems General: Denies: Fever Pulmonary: Denies: Cough, Sputum, Wheezing Cardiovascular: Denies: Edema Gastrointestinal: Denies: Diarrhea, Vomiting Neurological: Reports: Confusion Systems Review Comment: Unable to obtain a ROS from patient as she is very confused. ROS listed was obtained from family and nursing staff. - Patient Data Vitals - Most Recent: Last Vital Signs Temp 97.2 F 11/05/18 08:00 Pulse 81 11/05/18 08:00 Resp 18 11/05/18 08:00 BP 156/96 H 11/05/18 08:00 Pulse Ox 100 11/05/18 08:00 Weight - Most Recent: 118 lb 4.8 oz I&O - Last 24 hours: Intake & Output 11/04/18 11/05/18 11/05/18 22:59 06:59 14:59 Intake Total 2716 704 Output Total 300 500 500 Balance 2416 204 -500 Lab Results - Last 24 hrs: Laboratory Results - last 24 hr 11/04/18 11/04/18 11/04/18 Range/Units 13:07 17:23 21:14 WBC (3.98-10.04) K/mm3 RBC (3.98-5.22) M/mm3 Hgb (11.2-15.7) gm/L Hct (34.1-44.9) % MCV (79.4-94.8) fl MCH (25.6-32.2) pg MCHC (32.2-35.5) g/dl RDW Std Deviation (36.4-46.3) fL Plt Count (182-369) K/mm3 MPV (9.4-12.3) fl Neut % (Auto) (34.0-71.1) % Lymph % (Auto) (19.3-51.7) % [place] % (Auto) (4.7-12.5) % Eos % (Auto) (0.7-5.8) Baso % (Auto) (0.1-1.2) % Neut # (Auto) (1.56-6.13) K/mm3 Lymph # (Auto) (1.18-3.74) K/mm3 [place] # (Auto) (0.24-0.36) K/mm3 Eos # (Auto) (0.04-0.36) K/mm3 Baso # (Auto) (0.01-0.08) K/mm3 Sodium (136-145) mEq/L Potassium (3.5-5.1) mEq/L Chloride (98-107) mEq/L Carbon Dioxide (21-32) mEq/L Anion Gap (5-15) BUN (7-18) mg/dL Creatinine (0.55-1.02) mg/dL Est Cr Clr Drug Dosing mL/min Estimated GFR (MDRD) (>60) mL/min BUN/Creatinine Ratio (14-18) Glucose (83-115) mg/dL POC Glucose 142 H 325 H (83-110) mg/dL Calcium (8.5-10.1) mg/dL Magnesium (1.8-2.4) mg/dl C-Reactive Protein (<1.0) mg/dL MRSA (PCR) Negative 11/05/18 11/05/18 11/05/18 Range/Units 06:02 10:32 12:35 WBC 12.40 H (3.98-10.04) K/mm3 RBC 4.35 (3.98-5.22) M/mm3 Hgb 13.6 (11.2-15.7) gm/L Hct 41.6 (34.1-44.9) % MCV 95.6 H (79.4-94.8) fl MCH 31.3 (25.6-32.2) pg MCHC 32.7 (32.2-35.5) g/dl RDW Std Deviation 43.9 (36.4-46.3) fL Plt Count 198 (182-369) K/mm3 MPV 10.2 (9.4-12.3) fl Neut % (Auto) 54.0 (34.0-71.1) % Lymph % (Auto) 34.5 (19.3-51.7) % [place] % (Auto) 7.4 (4.7-12.5) % Eos % (Auto) 2.9 (0.7-5.8) Baso % (Auto) 0.6 (0.1-1.2) % Neut # (Auto) 6.70 H (1.56-6.13) K/mm3 Lymph # (Auto) 4.28 H (1.18-3.74) K/mm3 [place] # (Auto) 0.92 H (0.24-0.36) K/mm3 Eos # (Auto) 0.36 (0.04-0.36) K/mm3 Baso # (Auto) 0.07 (0.01-0.08) K/mm3 Sodium 138 (136-145) mEq/L Potassium 3.9 (3.5-5.1) mEq/L Chloride 106 (98-107) mEq/L Carbon Dioxide 25 (21-32) mEq/L Anion Gap 10.9 (5-15) BUN 21 H (7-18) mg/dL Creatinine 0.6 (0.55-1.02) mg/dL Est Cr Clr Drug Dosing 58.16 mL/min Estimated GFR (MDRD) > 60 (>60) mL/min BUN/Creatinine Ratio 35.0 H (14-18) Glucose 136 H (83-115) mg/dL POC Glucose 149 H (83-110) mg/dL Calcium 8.3 L (8.5-10.1) mg/dL Magnesium 1.8 (1.8-2.4) mg/dl C-Reactive Protein 0.9 (<1.0) mg/dL MRSA (PCR) NOHELIA Results - Last 24 hrs: Microbiology 11/03/18 20:20 Aerobic Blood Culture - Preliminary Blood - Venous - Lab Draw NO GROWTH AFTER 1 DAY Anaerobic Blood Culture - Preliminary NO GROWTH AFTER 1 DAY 11/03/18 20:10 Aerobic Blood Culture - Preliminary Blood - Venous NO GROWTH AFTER 1 DAY Anaerobic Blood Culture - Preliminary NO GROWTH AFTER 1 DAY Med Orders - Current: Current Medications Acetaminophen (Tylenol) 650 mg PO Q4H PRN PRN Reason: Pain (Mild 1-3)/fever Hydrocodone Bitart/Acetaminophen (Ione 325-5 Mg) 1 tab PO Q4H PRN PRN Reason: Pain (moderate 4-6) Albuterol/Ipratropium (Duoneb 3.0-0.5 Mg/3 Ml) 3 ml NEB Q4H PRN PRN Reason: Shortness Of Breath/wheezing Amlodipine Besylate (Norvasc) 7.5 mg PO DAILY [facility] Last Admin: 11/05/18 11:37 Dose: Not Given Aspirin (Halfprin) 81 mg PO DAILY [facility] Last Admin: 11/05/18 11:37 Dose: Not Given Bisacodyl (Dulcolax) 5 mg PO DAILY PRN PRN Reason: Constipation Carvedilol (Coreg) 3.125 mg PO BID [facility] Last Admin: 11/05/18 11:36 Dose: Not Given Dextrose/Water (Dextrose 50% In Water) 50 ml IVPUSH ASDIRECTED PRN PRN Reason: Hypoglycemia Docusate Sodium (Colace) 100 mg PO BID PRN PRN Reason: Constipation Enoxaparin Sodium (Lovenox) 40 mg SUBCUT DAILY [facility] Last Admin: 11/05/18 10:51 Dose: 40 mg Haloperidol Lactate (Haldol) 2 mg IM Q4H PRN PRN Reason: Agitation Hydralazine HCl (Apresoline) 10 mg IVPUSH Q4H PRN PRN Reason: Hypertension Last Admin: 11/04/18 11:56 Dose: 10 mg Hydromorphone HCl (Dilaudid) 0.25 mg IVPUSH Q2H PRN PRN Reason: Pain (severe 7-10) Promethazine HCl 6.25 mg/ (Sodium Chloride) 50.25 mls @ 100 mls/hr IV Q6H PRN PRN Reason: Nausea/Vomiting Ceftriaxone Sodium 1 gm/ (Sodium Chloride) 100 mls @ 200 mls/hr IV Q24H [facility] Last Admin: 11/04/18 11:58 Dose: 200 mls/hr Metronidazole 500 mg/ Premix 100 mls @ 200 mls/hr IV Q8H [facility] Insulin Glargine (Lantus) 10 unit SUBCUT BID [facility] Last Admin: 11/05/18 10:57 Dose: 10 units Insulin Human Lispro (Humalog) 0 unit SUBCUT QIDACANDBED [facility]; Protocol Last Admin: 11/05/18 12:41 Dose: Not Given Lorazepam (Ativan) 0.25 mg IV Q6H PRN PRN Reason: Anxiety Losartan Potassium (Cozaar) 12.5 mg PO DAILY [facility] Last Admin: 11/05/18 11:37 Dose: Not Given Magnesium Sulfate (Pharmacy To Dose - Magnesium Replacement) 1 dose .XX ASDIRECTED [facility] Metoprolol Tartrate (Lopressor) 2.5 mg IVPUSH Q4H PRN PRN Reason: Tachycardia Ondansetron HCl (Zofran) 4 mg IV Q6H PRN PRN Reason: Nausea/Vomiting Polyethylene Glycol (Miralax) 17 gm PO DAILY PRN PRN Reason: Constipation Potassium Chloride (Pharmacy To Dose - Potassium Replacement) 1 dose .XX ASDIRECTED [facility] Saccharomyces Boulardii (Florastor) 250 mg PO BID [facility] Last Admin: 11/05/18 11:37 Dose: Not Given Senna/Docusate Sodium (Senna Plus) 1 tab PO BID PRN PRN Reason: Constipation Vit A/Vit C/Vit E/Selen/Cu/Zn/Lutei (Icaps Mv) 1 tab PO DAILY [facility] Last Admin: 11/05/18 11:37 Dose: Not Given Discontinued Medications Alogliptin Benzoate (Alogliptin) 12.5 mg PO DAILY [facility] Last Admin: 11/04/18 12:27 Dose: Not Given Glipizide (Glucotrol Xl) 10 mg PO BIDMEALS [facility] Last Admin: 11/04/18 08:47 Dose: Not Given Glipizide (Glucotrol Xl) 10 mg PO 1200,1900 [facility] Insulin Human Regular 100 unit (/ Sodium Chloride) 100 mls @ 0.5 mls/hr IV TITRATE [facility]; Protocol Lactated Ringer's (Ringers, Lactated) 1,000 mls @ 999 mls/hr IV .BOLUS ONE Stop: 11/03/18 20:53 Last Admin: 11/03/18 20:20 Dose: 999 mls/hr Insulin Human Regular 100 unit (/ Sodium Chloride) 100 mls @ 5.05 mls/hr IV ONETIME ONE; Protocol Stop: 11/04/18 16:01 Last Titration: 11/03/18 23:15 Dose: 0 units/kg/hr, 0 mls/hr Lactated Ringer's (Ringers, Lactated) 1,000 mls @ 999 mls/hr IV .BOLUS ONE Stop: 11/03/18 22:51 Last Admin: 11/03/18 21:58 Dose: 999 mls/hr Lactated Ringer's (Ringers, Lactated) 1,000 mls @ 125 mls/hr IV ASDIRECTED [facility] Last Admin: 11/04/18 09:15 Dose: 125 mls/hr Potassium Chloride 10 meq/ (Premix) 100 mls @ 100 mls/hr IV Q1H [facility] Stop: 11/04/18 01:44 Last Admin: 11/04/18 01:15 Dose: 100 mls/hr Clindamycin Phosphate 600 mg/ (Sodium Chloride) 104 mls @ 100 mls/hr IV Q8H [facility] Last Admin: 11/05/18 05:18 Dose: 100 mls/hr Lactated Ringer's (Ringers, Lactated) 1,000 mls @ 25 mls/hr IV ASDIRECTED [facility] Insulin Glargine (Lantus) 4 unit SUBCUT DAILY [facility] Last Admin: 11/04/18 09:50 Dose: 4 units Insulin Human Lispro (Humalog) 1 unit SUBCUT QIDACANDBED [facility] Last Admin: 11/04/18 09:55 Dose: Not Given Insulin Human Regular (Humulin R) 5 unit IV ONETIME STA Stop: 11/03/18 19:51 Last Admin: 11/03/18 20:19 Dose: 5 units Lisinopril (Prinivil) 2.5 mg PO DAILY [facility] Non-Formulary Medication (Sitagliptin) 100 mg PO DAILY [facility] Potassium Chloride (Klor-Con M20) 40 meq PO Q4H [facility] Stop: 11/04/18 04:01 - Exam Quality Assessment: Reports: DVT Prophylaxis General: Reports: Alert, No Acute Distress. Denies: Oriented, Cooperative ( pleasant but unable to follow commands due to confusion ), Sedated, Lethargic, Obtunded HEENT: Reports: Pupils Equal, Pupils Reactive, EOMI, Mucous Membr. Moist/[place] Neck: Reports: Supple, Trachea Midline, No JVD Lungs: Reports: Clear to Auscultation, Normal Respiratory Effort Cardiovascular: Reports: Regular Rate, Regular Rhythm GI/Abdominal Exam: Normal Bowel Sounds, Soft, No Distention, No Abnormal Bruit (Female) Exam: Deferred Rectal (Female) Exam: Deferred Extremities: Normal Inspection, Normal Range of Motion, No Pedal Edema, Normal Capillary Refill Skin: Reports: Warm, Dry, Intact Neurological: Reports: No New Focal Deficit Psy/Mental Status: Reports: Alert, Other (Pleasant but very confused. )
[2018-11-05] MEDS ORDERED: metroNIDAZOLE/Normal Saline 500 MG in Premix Bag 1 BAG IV SCH (13:00)
[2018-11-05] MEDS: cefTRIAXone 1 GM in Sodium Chloride 0.9% 100 ML IV SCH (13:18)
[2018-11-05] MEDS ORDERED: Bumetanide 1 MG/4 ML MDV IVPUSH ONE (17:00)
== END 2018-11-05 14:35 | disposition other institution (70) | DRG 637 ==
LOC: JD.ED 19:00 → JD.ICU 21:40
PROVIDERS: ADMIT Internal Medicine; ATTEND Internal Medicine
DX: E11.65 Type 2 diabetes mellitus with hyperglycemia (principal); N28.9 Disorder of kidney and ureter, unspecified; I21.4 Non-ST elevation (NSTEMI) myocardial infarction; N17.9 Acute kidney failure, unspecified; E87.2 Acidosis; F03.90 Unspecified dementia, unspecified severity, without behavioral disturbance, psychotic disturbance, mood disturbance, and anxiety; F03.91 Unspecified dementia, unspecified severity, with behavioral disturbance; E86.0 Dehydration; I10 Essential (primary) hypertension; R74.8 Abnormal levels of other serum enzymes; K52.9 Noninfective gastroenteritis and colitis, unspecified; E78.5 Hyperlipidemia, unspecified; R53.1 Weakness; Z66 Do not resuscitate; Z88.0 Allergy status to penicillin; Z88.8 Allergy status to other drugs, medicaments and biological substances; Z79.4 Long term (current) use of insulin; Z79.899 Other long term (current) drug therapy
CPT/HCPCS: 36415; 36600; 71045; 80053; 81001; 82009; 82043; 82803; 82947 ×2; 83605; 83735; 84484; 85007; 85027; 87040 ×2; 87804 ×2; 93005; 96365; 96376; 99285; J1815 ×2; J7030; J7120; 70450; 70450-26; 71046; 71046-26; 80048; 82306; 82553; 82962; 83036; 84439; 84443; 85025; 86140; 87641; 93010; 96366; 97161-GP; 97167-GO; 97530-GO; A9270-GY; J0360; J0696; J1650; J3480; J3490